=== PATIENT | male | born 1950 | race Asian ===

== ENCOUNTER 2024-01-31 17:23 | Inpatient (IN) | payer OTHER, SELFPAY ==
[2024-01-31] VITALS (8 sets, daily range): BP systolic 126–147; BP diastolic 51–66; BMI 26.5; BMI 27.0
--- NOTE | 2024-01-31 14:30 | W.PN.CD ---
Addendum entered and electronically signed by Carlos Eagle MD 01/31/24 16:55:
I saw and examined the patient.
The STATUE CARVER's note was reviewed and I agree with the note.
73-year-old male, non-Uzbek speaking, with history of aortic stenosis, diabetes, hypertension and hypercholesterolemia has had some intermittent chest discomfort with activity. Not really reproducible with walking. Some of his symptoms are worse
with bending over. Due to a combination of patient's symptoms, risk factors and new ECG changes patient was sent to the hospital by Dr. Covarrubias for evaluation and treatment.. Currently chest pain-free. First troponin normal markable.
-Admit for further evaluation and treatment
-Troponins
-Echo to reassess aortic stenosis
-Aspirin.
-Lipid profile
-Diabetes management as directed by primary team
-Plan for cardiac catheterization 02/01/2020
Original Note:
Today's Communication / Plan
-
Npo after midnight
Coronary angiography in am
Impression / Plan
-
THIS IS THE SUMMARY
SEE SCANNED REPORT FOR FULL CONSULTATION
BACKGROUND: 73M who presented to outpatient cardiology office to establish care endorsed chest pain and was found to have new ST changes. He was referred to the ER for full evaluation.
Capacitor Inspector: Dr. Covarrubias (formerly known to Dr. Arias)
Chest pain
-New inferolateral ST depression
-ASA 324mg x 1 now then 81mg daily
-Troponin < 0.012, trend
-Currently chest pain free (no resting chest pain)
-Echocardiogram
-Cardiac catheterization in am, NPO after midnight
Hyperkalemia, hold valsartan
Aortic stenosis
-Mild in 2019 with peak/mean gradients 28/14mmHg, ABBY 1.5cm2 with mild AR
-Update TTE
HTN
-Continue medical therapy
-Mild cLVH on 2019 TTE
Type II DM, Hgba1c in am
HLD, on rosuvastatin 40mg, fasting lipid panel in am
COPD, no acute exacerbation
Former smoker, continued cessation recommended
SUBJECTIVE:
Chest pain free.
Physical Exam
Physical Exam
Constitutional: No acute distress and Comfortable
EENT: Anicteric and Moist mucous membranes
Cardiovascular: Rhythm & rate is regular, Pedal edema is absent and S1S2 is normal
Respiratory: Respiratory effort normal and Lungs clear to auscul.
GI: Soft, Distention absent, Flat and Non tender
Neuro/Psych: AO x 3
Other: Skin (warm and dry)
Data Reviewed
-
Date of Service: January 31, 2024
EKG: Report Reviewed by me
Labs: Labs Reviewed by me
Old Records: Reviewed
[2024-01-31 14:54] LABS: % Basophils 0.8 % (0-2); % Immature Granulocytes 0.3 % (0-0.5); % Lymphocytes 41.3 % (20.5-51.1); % Monocytes 9.1 % (1.7-9.3); % Neutrophils 44.5 % (42.2-75.2); Absolute Basophils 0.1 10^3/uL (0-0.2); Absolute Eosinophils 0.5 10^3/uL (0-0.7); Absolute Lymphocytes 5.1 10^3/uL (1.2-3.4); Absolute Monocytes 1.1 10^3/uL (0.1-0.6); Absolute Neutrophils 5.5 10^3/uL (1.4-6.5); Hematocrit 39.7 % (39.0-52.0); Hemoglobin 12.7 g/dL (13.0-18.0); Mean Corpuscular Hgb 22.5 pg (27.0-31.0); Mean Corpuscular Volume 70.4 fL (80.0-94.0); Mean Platelet Volume 10.4 fL (7.4-10.4); Nucleated Red Blood Cells % 0 % (-); Platelet Count 235 10^3/uL (130-400); Red Blood Cell Count 5.64 10^6/uL (4.70-6.10); Red Cell Dist. Width 15.9 % (11.5-14.5); White Blood Cell Count 12.3 10^3/uL (4.8-10.8)
[2024-01-31 15:15] LABS: ALT (SGPT) 42 U/L (0-50); AST (SGOT) 54 U/L (17-59); Albumin 4.5 g/dl (3.5-5.0); Alkaline Phosphatase 83 U/L (38-126); Blood Urea Nitrogen 11 mg/dl (9-20); Calcium 9.2 mg/dl (8.4-10.2); Carbon Dioxide 24 mmol/L (22-30); Chloride 108 mmol/L (98-107); Glucose 130 mg/dl (70-99); Potassium 5.6 mmol/L (3.5-5.1); Sodium 138 mmol/L (135-145); Total Bilirubin 0.6 mg/dl (0.2-1.3); Total Protein 8.9 g/dl (6.3-8.2); eGFR > 60.00
[2024-01-31 15:27] LABS: Troponin I < 0.012 ng/ml
--- NOTE | 2024-01-31 16:00 | ED.GENMED ---
History of Present Illness
<Brittney Hercules PA-C - Last Filed: 01/31/24 20:02>
General
Chief Complaint: Chest Pain
Source: patient
Exam Limitations: none
Time Seen by Provider: 01/31/24 15:23
Nursing documentation reviewed up to this point in time: agreed with
Travel History
Have you had any contact with someone who has COVID-19?: No
Do you have any symptoms of coronavirus? Fever > 100 degrees, chills, cough, shortness of breath, sore throat, loss of taste or smell, muscle aches, or headache?: No
History of Present Illness
History of Present Illness:
Patient is a 73-year-old male with history diabetes, hypertension, COPD, aortic stenosis presenting to the emergency department from cardiology office for admission. Patient seen in cardiology office today for evaluation of intermittent chest pain
and was found to have new EKG changes. Patient speaks little Armenian but his son-in-law is at bedside and translating. Reports intermittent shortness of breath when bending over. Patient denies any recent fever, chills. No history of blood clots.
Primer Supervisor noted ST changes in inferior lateral leads and T wave inversions. Sent by emergency department for admission and plan for cardiac cath in the morning, heparin drip, echo.
Phy Exam
<Brittney Hercules PA-C - Last Filed: 01/31/24 20:02>
Physical Exam
Physical Exam:
General: Well appearing and non-toxic
Vitals: Vital signs stable, afebrile
HEENT: Atraumatic, normocephalic; pupils equal round and reactive to light bilaterally, protecting airway
Neck: appears supple, no JVD
CV: Regular rate
Resp: No evidence of respiratory distress, scattered rhonchi
Abd: Soft, nontender, non-distended
Extremities: No deformities, no evidence of cyanosis or edema; DP pulses palpable and equal bilaterally
Neuro: alert and oriented x3; grossly intact
Psych: Normal affect
Skin: Intact, no rashes
Scores
<Brittney Hercules PA-C - Last Filed: 01/31/24 20:02>
Heart Score for Chest Pain Patients
STEMI patient?: No
History: Moderately Suspicious
ECG: Nonspecific Repolarization
Age: >/= 65 years
Risk Factors: >/= 3 Risk Factors or History of CAD
Troponin: </= Normal Limit
Heart Score for Chest Pain Patients: 6
Heart Score Risk: 20.3% MACE over next 6 weeks
Course
<Brittney Hercules PA-C - Last Filed: 01/31/24 20:02>
Orders/Labs/Results
Orders:
Orders
01/31/24 14:34
EKG [Electrocardiogram (*1)] Urgent
Reason for Study: Chest Pain
EKG- Treatment ONCE
01/31/24 14:48
Complete Blood Count/With Diff Urgent
Comprehensive Metabolic Panel Urgent
NT-proBNP Urgent
Comment: ADD ON
Troponin I Urgent
01/31/24 15:45
Aspirin Chewable [Low Strength Aspirin] 324 mg PO NOW STA
01/31/24 15:54
CARDIOLOGY CONSULT Urgent
Consulting Provider: Carlos Eagle
Was physician already notified: Yes
01/31/24 16:09
Heparin 4,000 units IV NOW STA
Nursing to Place Non Medication Order As Directed
Physician Order: PTT 6 hours after initial start of Heparin infusion
Above order entered?: Yes
01/31/24 16:15
Heparin 88580 Units/250 ml 25,000 units in 250 ml IV PER PROTOCOL
Weight to be used for heparin protocol in kilograms (kg):: 76.8
Protocol:: Cardiac Tx/Acute Coronary
PTT Goal Range to be used:: PTT 73 to 111 seconds
Order type:: Initial
INITIAL Infusion Dose (UNITS/KG/hr) & then follow protocol:: 12 units/kg/hr
Infusion Dose in UNITS/hr & then follow protocol (UNITS/hr):: 900
INFUSION RATE in mL/hr & then follow protocol (mL/hr):: 9
PTT less than or equal to 64 seconds:: Increase rate by 200 units/hr (+ 2 mL/hr)
PTT 64.1 to 72.9 seconds:: Increase rate by 100 units/hr (+ 1 mL/hr)
PTT 73 to 111 seconds:: Target Range. No change in rate.
PTT 111.1 to 130.9 seconds:: Decrease rate by 100 units/hr (- 1 mL/hr)
PTT 131 to 199.9 seconds:: HOLD for 1 hr. Then decrease rate by 200 units/hr (- 2 mL/hr)
PTT greater than or equal to 200 seconds:: HOLD for 2 hrs & Notify Provider. Then decrease by 200 units/hr (-
2 mL/hr)
Lab follow-up:: Each change, PTT q6h until 2 consecutive are therapeutic. Then PTT
daily.
01/31/24 16:24
CR Chest - 2 Views Urgent
Comment:
Reason For Exam: cough
01/31/24 16:30
COVID-19 Antigen Urgent
Source: Nasal Swab
PTT Urgent
Comment: Obtain baseline before beginning heparin infusion if not already collected
01/31/24 16:36
Add On- LAB Urgent
Tests Added?: BNP
01/31/24 16:43
Admit/Transfer Patient As Directed
Co-Sign Provider:
Level of Care: Inpatient admission
Assign to:: IVU
Physician / Group: yudelka child
Diagnosis: JOYNER concern [place]
Reason for Hospitalization: JOYNER concern [place]
Expected length of stay greater than two midnights?: Yes
ELOS- Estimated Length of Stay in days: 4
I certify the patient meets the requirements for IP care: Yes
Code Status As Directed
Resuscitation Status: Full Code
01/31/24 16:53
Sodium Zirconium Cyclosilicate [Lokelma] 10 gram PO NOW STA
01/31/24 20:00
EKG [Electrocardiogram (*1)] Routine
Reason for Study: Chest Pain
Comment: To be done with troponin
Troponin I Routine
02/01/24 Breakfast
NPO
Allow oral meds: Yes
Allow clear liquids: No
NPO with Ice Chips: No
NPO for procedure after (time): Midnight for cardiac cath
Glycohemoglobin (HgbA1c) IN AM
Lipid Profile [Cardiovascular Evaluation] IN AM
02/01/24 08:00
Echo 2D MMode Color/Doppler Routine
Reason for Study: Chest pain, aortic stenosis
Aspirin Low Dose EC [Aspir Low (Enteric Coated)] 81 mg PO DAILY
Abnormal Lab Results
01/31/24 01/31/24
14:48 16:30
WBC 12.3 H 10^3/uL
(4.8-10.8)
Hgb 12.7 L g/dL
(13.0-18.0)
MCV 70.4 L fL
(80.0-94.0)
MCH 22.5 L pg
(27.0-31.0)
MCHC 32.0 L g/dL
(33.0-37.0)
RDW 15.9 H %
(11.5-14.5)
Absolute Lymphs (auto) 5.1 H 10^3/uL
(1.2-3.4)
Absolute Monos (auto) 1.1 H 10^3/uL
(0.1-0.6)
APTT 36.1 H Sec
(23.4-35.0)
Potassium 5.6 H mmol/L
(3.5-5.1)
Chloride 108 H mmol/L
(98-107)
Glucose 130 H mg/dl
(70-99)
Total Protein 8.9 H g/dl
(6.3-8.2)
01/31/24 14:48
01/31/24 14:48
Vital Signs
Initial and Last Documented VS:
Initial Vital Signs
Temp Pulse Resp BP Pulse Ox
98.0 F 68 15 128/57 96
01/31/24 14:35 01/31/24 14:35 01/31/24 14:35 01/31/24 14:35 01/31/24 14:35
Last Documented Vital Signs
Temp Pulse Resp BP Pulse Ox
98.0 F 72 16 142/57 96
01/31/24 14:35 01/31/24 18:00 01/31/24 16:45 01/31/24 19:00 01/31/24 19:30
<Ashkan Tang MD - Last Filed: 01/31/24 16:18>
Orders/Labs/Results
Orders:
Orders
01/31/24 14:34
EKG [Electrocardiogram (*1)] Urgent
Reason for Study: Chest Pain
EKG- Treatment ONCE
01/31/24 14:48
Complete Blood Count/With Diff Urgent
Comprehensive Metabolic Panel Urgent
NT-proBNP Urgent
Comment: ADD ON
Troponin I Urgent
01/31/24 15:45
Aspirin Chewable [Low Strength Aspirin] 324 mg PO NOW STA
01/31/24 15:54
CARDIOLOGY CONSULT Urgent
Consulting Provider: Carlos Eagle
Was physician already notified: Yes
01/31/24 16:09
Heparin 4,000 units IV NOW STA
Nursing to Place Non Medication Order As Directed
Physician Order: PTT 6 hours after initial start of Heparin infusion
Above order entered?: Yes
01/31/24 16:15
Heparin 13956 Units/250 ml 25,000 units in 250 ml IV PER PROTOCOL
Weight to be used for heparin protocol in kilograms (kg):: 76.8
Protocol:: Cardiac Tx/Acute Coronary
PTT Goal Range to be used:: PTT 73 to 111 seconds
Order type:: Initial
INITIAL Infusion Dose (UNITS/KG/hr) & then follow protocol:: 12 units/kg/hr
Infusion Dose in UNITS/hr & then follow protocol (UNITS/hr):: 900
INFUSION RATE in mL/hr & then follow protocol (mL/hr):: 9
PTT less than or equal to 64 seconds:: Increase rate by 200 units/hr (+ 2 mL/hr)
PTT 64.1 to 72.9 seconds:: Increase rate by 100 units/hr (+ 1 mL/hr)
PTT 73 to 111 seconds:: Target Range. No change in rate.
PTT 111.1 to 130.9 seconds:: Decrease rate by 100 units/hr (- 1 mL/hr)
PTT 131 to 199.9 seconds:: HOLD for 1 hr. Then decrease rate by 200 units/hr (- 2 mL/hr)
PTT greater than or equal to 200 seconds:: HOLD for 2 hrs & Notify Provider. Then decrease by 200 units/hr (-
2 mL/hr)
Lab follow-up:: Each change, PTT q6h until 2 consecutive are therapeutic. Then PTT
daily.
01/31/24 16:24
CR Chest - 2 Views Urgent
Comment:
Reason For Exam: cough
01/31/24 16:30
COVID-19 Antigen Urgent
Source: Nasal Swab
PTT Urgent
Comment: Obtain baseline before beginning heparin infusion if not already collected
01/31/24 16:36
Add On- LAB Urgent
Tests Added?: BNP
01/31/24 16:43
Admit/Transfer Patient As Directed
Co-Sign Provider:
Level of Care: Inpatient admission
Assign to:: IVU
Physician / Group: yudelka child
Diagnosis: JOYNER concern [place]
Reason for Hospitalization: JOYNER concern [place]
Expected length of stay greater than two midnights?: Yes
ELOS- Estimated Length of Stay in days: 4
I certify the patient meets the requirements for IP care: Yes
Code Status As Directed
Resuscitation Status: Full Code
01/31/24 16:53
Sodium Zirconium Cyclosilicate [Lokelma] 10 gram PO NOW STA
01/31/24 20:00
EKG [Electrocardiogram (*1)] Routine
Reason for Study: Chest Pain
Comment: To be done with troponin
Troponin I Routine
02/01/24 Breakfast
NPO
Allow oral meds: Yes
Allow clear liquids: No
NPO with Ice Chips: No
NPO for procedure after (time): Midnight for cardiac cath
Glycohemoglobin (HgbA1c) IN AM
Lipid Profile [Cardiovascular Evaluation] IN AM
02/01/24 08:00
Echo 2D MMode Color/Doppler Routine
Reason for Study: Chest pain, aortic stenosis
Aspirin Low Dose EC [Aspir Low (Enteric Coated)] 81 mg PO DAILY
Abnormal Lab Results
01/31/24 01/31/24
14:48 16:30
WBC 12.3 H 10^3/uL
(4.8-10.8)
Hgb 12.7 L g/dL
(13.0-18.0)
MCV 70.4 L fL
(80.0-94.0)
MCH 22.5 L pg
(27.0-31.0)
MCHC 32.0 L g/dL
(33.0-37.0)
RDW 15.9 H %
(11.5-14.5)
Absolute Lymphs (auto) 5.1 H 10^3/uL
(1.2-3.4)
Absolute Monos (auto) 1.1 H 10^3/uL
(0.1-0.6)
APTT 36.1 H Sec
(23.4-35.0)
Potassium 5.6 H mmol/L
(3.5-5.1)
Chloride 108 H mmol/L
(98-107)
Glucose 130 H mg/dl
(70-99)
Total Protein 8.9 H g/dl
(6.3-8.2)
01/31/24 14:48
01/31/24 14:48
Vital Signs
Initial and Last Documented VS:
Initial Vital Signs
Temp Pulse Resp BP Pulse Ox
98.0 F 68 15 128/57 96
01/31/24 14:35 01/31/24 14:35 01/31/24 14:35 01/31/24 14:35 01/31/24 14:35
Last Documented Vital Signs
Temp Pulse Resp BP Pulse Ox
98.0 F 72 16 142/57 96
01/31/24 14:35 01/31/24 18:00 01/31/24 16:45 01/31/24 19:00 01/31/24 19:30
<Brittney Hercules PA-C - Last Filed: 01/31/24 20:02>
MDM/Problems Addressed
Differential Diagnosis Includes:
Unstable angina, NSTEMI, stable angina, GERD, pericarditis,
MDM/Problems Addressed:
Patient is a 73-year-old male with history hypertension, diabetes, COPD presenting from cardiology office for intermittent chest pain and EKG changes. Sent in by cardiology for admission and plan for cardiac cath in the morning. We will start
heparin drip, aspirin, NPO as directed by cardiology. Plan for echo on this admission, as well. Cardiology is at bedside upon arrival. Discussed with hospitalist.
Chronic conditions affecting care:
Hypertension, diabetes, c/o
Acute Exacerbation and/or Progression of Chronic Illness:
N/A
<Brittney Hercules PA-C - Last Filed: 01/31/24 20:02>
*Pulse Oximetry
Patient hypoxic: no
*EKG
Interpreted by ED Provider?: Yes
EKG Intrepretation Date: 01/31/24
Interpretation: normal
Comparison EKG: no comparison EKG present
Heart Rate: 68
Rate: normal
Rhythm: sinus
Ischemia: non-specific ST changes
*Critical Care Note
Total Time (30-74mins, 75-104mins- exclusive of procedures): Not Applicable
Data Reviewed
Review of Other/Old Records Reveals: Testing (Prior EKG)
<Brittney Hercules PA-C - Last Filed: 01/31/24 20:02>
Patient Management
Discussion with other providers: Hospitalist and Roofing Superintendent (Cardiology)
ED Attending Note
<Brittney Hercules PA-C - Last Filed: 01/31/24 20:02>
-
Portions of this chart may have been created with voice recognition software.� Occasional wrong word or��sound alike� substitutions may have occurred due to the inherent limitations of voice recognition software.
<Ashkan Tang MD - Last Filed: 01/31/24 16:18>
ED Attending Note
Patient seen and examined by attending physician: Yes
ED Attending Note:
HPI: 73-year-old male with a past medical history of aortic stenosis, hyperlipidemia, hypertension, COPD, diabetes who presents to the emergency room sent in by cardiology for evaluation of chest discomfort and abnormal EKG. Patient does not speak
Armenian his son-in-law is at bedside and provides translation. Patient has been experiencing midsternal chest discomfort which he has been attributing to indigestion. Sound like it is exertional. Occasional dyspnea as well�he states that this
seems to be worse when he bends over. He was seen by cardiology in the office had an EKG which showed inferior lateral ST depression and T wave inversions he was sent to the emergency room with plan for admission and cardiac cath in the morning.
ROS: Positive for chest pain, shortness of breath; negative for abdominal pain, nausea, vomiting, diaphoresis
Physical exam:
General: Awake, alert; no acute distress
Head: Normocephalic, atraumatic
Eyes: Conjunctiva normal
Throat: Airway intact, handling secretions
Neck: Trachea midline, supple without meningismus
Lungs: Breathing comfortably no distress
Heart: Regular rate
Neuro: No gross deficits
Skin: no rash
Extremities: No edema in extremities
Differential diagnosis: Unstable angina
Medical decision makin-year-old male presents with intermittent chest pains and abnormal EKG found on outpatient cardiology visit. He was referred to the emergency room with plan for initiation of heparin infusion, treat with aspirin and
admission for cardiac catheterization in the morning. N.p.o. at midnight. Will also perform echocardiogram admitted. Cardiology at bedside on ED arrival. Discussed with hospitalist for admission.
Chronic conditions affecting care: Hypertension, hyperlipidemia, diabetes�higher risk for heart disease
Acute exacerbation or progression of chronic illness: N/A
History source: Patient, son-in-law, curtain cutter
Data reviewed: Outpatient cardiology note reviewed
Medications/testing considered: N/A
Social determinants of health: N/A
Discussion with other providers: Discussed with cardiology, discussed with hospitalist
Discharge Plan
Departure
Patient Disposition: Admit
Date of Disposition: 01/31/24
Time of Disposition: 16:01
Admit to doctor: Do
Presentation/result/management discussed w/ accepting MD/DO: Hospitalist
Discharge Problem:
Chest pain, Abnormal EKG, Unstable angina
Interventions
Interventions:
*Risk Screen - Suicide Last Done: 01/31/24 14:35
*General Assessment Last Done: 01/31/24 14:35
*Neglect/Abuse Screening Last Done: 01/31/24 14:35
ED- Fall Risk Assessment Last Done: 01/31/24 16:49
*ED COVID-19 Vaccine History Last Done: 01/31/24 14:35
ED- Cardiac Assessment Last Done: 01/31/24 16:49
--- NOTE | 2024-01-31 16:13 | HPS.HSE ---
Addendum entered and electronically signed by Goyo Lerma MD 01/31/24 16:54:
I saw and examined the patient.
The MORTGAGE LOAN COMPUTATION CLERK's note was reviewed and I agree with the note.
Comment:
80-year-old male presenting to primary care doctor's office with complaints of chest pain and abnormal EKG. Patient was seen in the ER by cardiology. Patient with history of severe smoking and tobacco abuse. Patient also with increasing risk
factors of hypertension, hyperlipidemia and diabetes and obesity. Currently patient without any chest pain. Resting in bed comfortably. No further complaints.
General no acute distress
Cardiac S1-S2 regular rate rhythm
Lungs bilateral coarse sounds
Abdomen positive bowel sounds distended obesity
Extremities no edema
Impression
Unstable angina
Primary hypertension
hyperlipidemia
COPD
Tobacco abuse
Obesity
Leukocytosis
hyperkalemia
Plan
Cardiology evaluated the patient
Plan for cardiac catheterization in the morning
N.p.o. past midnight
Heparin drip
TTE pending
Status post aspirin
Check chest x-ray COVID and proBNP
update a1c
hold po DM meds.
DVT Prophylaxis heparin drip
Original Note:
Family Physician
-
Family Physician:
Chief Complaint
-
Abnormal EKG, chest pain on exertion
History of Present Illness
73-year-old male from primary care office office for abnormal EKG. He reports for the past few weeks well getting up or bending over to change he develops midsternal chest pain radiates to left and right-sided chest and resolves after a few minutes.
He also reports a nonproductive cough for the past 2 days. He denies fever, chills, current chest pain at rest, shortness of breath, abdominal pain, nausea, vomiting, diarrhea, urinary symptoms
The patient has a past medical history of HTN, HLD, COPD/former smoker 10-year 1/2 pack/day quit age 51, DM2, obesity
Medical History
Past Medical History
Past Medical History: Reports Other
Additional Past Medical History:
HTN, HLD, COPD/former smoker 10-year 1/2 pack/day quit age 51, DM2, obesity
Past Surgical History: Reports None
Social History
Tobacco: Former Smoker (Quit age 51 smoked 10 years 1/2 pack/day)
Alcohol: None
Drug: None
Personal:
Living: With Family
Employment: Retired
Family History
Family History: Other (Father CVA age 95, mother age CVA 85)
Allergies / Home Medications
Allergies reflects when Allergies were last updated in [facility].
Home Medications with original date entered in [facility]
Allergy/Medication List:
Allergies
Allergy/AdvReac Type Severity Reaction Status Date / Time
No Known Allergies Allergy Verified 01/31/24 15:49
Home Medications
amlodipine 5 mg tablet 5 mg PO DAILY 01/31/24
dapagliflozin propanediol 10 mg tablet (Farxiga) 10 mg PO DAILY 01/31/24
fluticasone fur. 100 mcg-umeclid 62.5 mcg-vilant 25 mcg inhalat.powder (Trelegy Ellipta) 1 inh inhalation R DAILY 01/31/24
insulin aspart U-100 100 unit/mL (3 mL) subcutaneous pen 10 unit SC MEALS 01/31/24
insulin detemir U-100 100 unit/mL (3 mL) subcutaneous pen (Levemir FlexPen) 0 unit SC .UNKNOWN 01/31/24
omeprazole 40 mg capsule,delayed release 40 mg PO DAILY 01/31/24
rosuvastatin 40 mg tablet 40 mg PO HS 01/31/24
sitagliptin phosphate 50 mg-metformin 1,000 mg tablet (Janumet) 1 tab PO BID@0800,1700 01/31/24
valsartan 320 mg tablet 320 mg PO DAILY 01/31/24
Review of Systems
-
History Source: Patient and Family (Son-in-law at bedside translating)
A 12 point ROS was completed and negative except as noted: Yes
Constitutional: Denies Fever, Weight Gain or Weight Loss
EENT: Denies Sore Throat or Runny Nose
Respiratory: Reports Cough (Nonproductive); Denies Trouble Breathing
Cardiac: Reports Chest Pain (With activity); Denies Diaphoresis, Palpitations or Syncope
Abdomen/GI: Denies Abdominal Pain, Nausea, Vomiting or Diarrhea
: Denies Dysuria, Frequency, Flank Pain, Incontinence, Difficulty Voiding or Urgency
Musculoskeletal: Denies Joint Pain or Edema
Skin: Denies Itching or Rash
Neurological: Denies Dizzy or Headache
Endocrine: Reports No Symptoms
Hematologic/Lymphatic: Reports No Symptoms
Psych: Reports Calm
Physical Exam
Vital Signs
Vital Signs
Temp Pulse Resp BP Pulse Ox
98.0 F 68 15 128/57 96
01/31/24 14:35 01/31/24 14:35 01/31/24 14:35 01/31/24 14:35 01/31/24 14:35
Physical Exam
General: Comfortable, Conversant and Obese; No Fever or Chills
HEENT: NormoCephalic, Anicteric, PERRLA, Secretary Conjunctivae and No Ptosis
Respiratory: Rhonchi
Cardiac: S1/S2; No Murmur, Rub, Gallop or Peripheral Edema
Breast: Deferred by me
GI: Soft, Non Tender, Non Distended, Normal Bowel Sounds and No Hepatosplenomegaly
Rectal: Deferred by Provider
Genito-urinary: Deferred by me
Musculoskeletal: No Clubbing, No Cyanosis and No Edema
Skin: Warm and Dry; No Rash
Neuro: AO x 3 (Per son-in-law translating), Cranial Nerves Intact and No Sensory Deficits; No Slurred Speech, Facial Droop or Tremors
Psych: Calm
Laboratory Results
-
01/31/24 14:48
01/31/24 14:48
Laboratory Results
Total Bilirubin 0.6 mg/dl (0.2-1.3) 01/31/24 14:48
AST 54 U/L (17-59) 01/31/24 14:48
ALT 42 U/L (0-50) 01/31/24 14:48
Alkaline Phosphatase 83 U/L (38-126) 01/31/24 14:48
Troponin I < 0.012 ng/ml 01/31/24 14:48
Data Reviewed
-
Lab Data: Labs Reviewed by me
Impression/Plan
-
Impression/plan:
Admit to IVU
Dyspnea on exertion concern for [place]
-Consult cardiology
-Start aspirin 81 mg daily
-IV heparin drip
-N.p.o. after midnight
- For CATH/ECHO in AM
-Check CXR, COVID swab, BNP
#DM2
Accu-Cheks with SSI, check HgbA1c
#HTN�benign
Continue amlodipine 5 mg daily, valsartan 320 mg daily
#COPD�no acute exacerbation
-Continue Trelegy Ellipta
#GERD
-Continue omeprazole 40 mg daily
DVT prophylaxis
IV heparin drip
Full code
[2024-01-31] MEDS: LOW STRENGTH ASPIRIN 324 MG PO (16:16)
[2024-01-31 16:58] LABS: APTT 36.1 Sec (23.4-35.0)
[2024-01-31 17:04] LABS: COVID-19 Antigen Negative (Negative)
[2024-01-31 17:07] LABS: NT-proBNP 104 pg/ml
[2024-01-31] MEDS: LOKELMA 10 GRAM PO (17:09)
[2024-01-31] MEDS: HEPARIN 4000 UNITS IV (17:12)
[2024-01-31] MEDS: HEPARIN 25000 UNITS/250 ML IV (17:17)
[2024-01-31 20:39] LABS: Troponin I < 0.012 ng/ml
[2024-01-31 22:03] LABS: Glucose - Point of Care 133 mg/dl (70-99)
--- NOTE | 2024-01-31 22:11 | PTCARENOTE ---
Patient received from ED. Walked into room. Heparin infusing at 900 units/hr, family at bedside to interpret, plan of care reviewed and patient denies chest pain
[2024-01-31] MEDS: CRESTOR 40 MG PO (23:02)
[2024-01-31 23:24] LABS: APTT 59.9 Sec (23.4-35.0)
--- NOTE | 2024-01-31 23:26 | PTCARENOTE ---
Assisted to the bathroom, dyspneic with little exertion. 92% on room air, fine rales b/l bases. PTT collected , call garces in reach
[2024-02-01] VITALS (12 sets, daily range): BP systolic 110–169; BP diastolic 46–89; BMI 27.0
[2024-02-01 05:46] LABS: % Basophils 0.8 % (0-2); % Eosinophils 4.4 % (0-6); % Immature Granulocytes 0.2 % (0-0.5); % Lymphocytes 40.8 % (20.5-51.1); % Monocytes 8.5 % (1.7-9.3); % Neutrophils 45.3 % (42.2-75.2); Absolute Basophils 0.1 10^3/uL (0-0.2); Absolute Eosinophils 0.6 10^3/uL (0-0.7); Absolute Lymphocytes 5.1 10^3/uL (1.2-3.4); Absolute Monocytes 1.1 10^3/uL (0.1-0.6); Absolute Neutrophils 5.7 10^3/uL (1.4-6.5); Hematocrit 38.6 % (39.0-52.0); Hemoglobin 12.3 g/dL (13.0-18.0); Mean Corp Hgb Conc. 31.9 g/dL (33.0-37.0); Mean Corpuscular Volume 69.1 fL (80.0-94.0); Mean Platelet Volume 10.9 fL (7.4-10.4); Nucleated Red Blood Cells % 0 % (-); Platelet Count 217 10^3/uL (130-400); Red Blood Cell Count 5.59 10^6/uL (4.70-6.10); Red Cell Dist. Width 15.4 % (11.5-14.5); White Blood Cell Count 12.5 10^3/uL (4.8-10.8)
[2024-02-01 06:01] LABS: APTT 52.6 Sec (23.4-35.0)
[2024-02-01 06:50] LABS: Blood Urea Nitrogen 13 mg/dl (9-20); Carbon Dioxide 21 mmol/L (22-30); Chloride 108 mmol/L (98-107); Estimated Creatinine Clearance 102 ml/min; Glucose 130 mg/dl (70-99); HDL Cholesterol 26 mg/dl; LDL Cholesterol, Calculated 31 mg/dl; Potassium 4.1 mmol/L (3.5-5.1); Sodium 137 mmol/L (135-145); Total Cholesterol 93 mg/dl (50-199); Triglyceride 180 mg/dl (10-149); Very Low Density Lipoprotein 36 mg/dl (0-30); eGFR > 60.00
[2024-02-01] MEDS: SPIRIVA RESPIMAT 2.5 MCG 2 PUFF INH (07:11)
[2024-02-01] MEDS: SYMBICORT 80/4.5 MCG INHALER 2 PUFF INH ×2 (07:11→19:54)
[2024-02-01 07:34] LABS: Glucose - Point of Care 138 mg/dl (70-99)
[2024-02-01] MEDS: DIOVAN 320 MG PO (07:51)
[2024-02-01] MEDS: ASPIR LOW (ENTERIC COATED) 81 MG PO (07:52)
[2024-02-01] MEDS: PROTONIX 40 MG PO (07:52)
[2024-02-01] MEDS: FARXIGA 10 MG PO (07:52)
[2024-02-01] MEDS: NORVASC 5 MG PO (07:53)
--- NOTE | 2024-02-01 08:46 | W.PN.CD ---
Today's Communication / Plan
-
Multiple unanswered questions.
TTE to assess myocardial function/.
Coronary angiography today. We may change to right + left heart catheterization to assess pulmonary pressure, CO/CI given CXR findings.
Impression / Plan
-
Impression/Plan: 73 y/o [place] gentleman who presented to outpatient cardiology office to establish care endorsed chest pain and was found to have new ST changes. He was referred to the ER for full evaluation/cardiac catheterization.
#Chest pain
-Intermittent by report. Currently chest pain free.
-Office EKG shows new inferolateral ST depression.
-Plan for coronary angiography to clarify coronary anatomy today.
-Echocardiogram pending. We will interpret this before going to cath (especially in light of CXR findings and prior diagnosis of ).
#Aortic stenosis
-Mild in 2019 with peak/mean gradients 28/14mmHg, ABBY 1.5cm2 with mild AR.
-TTE this morning.
-We may interrogate the aortic valve at catheterization.
#HTN
-Chronic, stable.
-Continue amlodipine, valsartan.
-Mild cLVH on 2019 TTE.
#Type II DM
-Chronic, stable.
-Hgba1c pending.
#HLD
-Chronic, stable.
-Total cholesterol = 93, LDL = 31, HDL = 26, Triglycerides = 180.
-Continue rosuvastatin 40mg.
#COPD/IPF
-Chronic, stable.
-No acute exacerbation.
-CXR suggests inflammatory/fibrotic pattern (pulmonary edema less likely).
#Former smoker
-Continued cessation recommended.
Puppet Master: Dr. Covarrubias (formerly known to Dr. Arias)
Subjective/Interval History:
Nursing notes dyspnea on minimal exertion (walking to bathroom).
SaO2 91-92% on RA.
DATA:
CXR, 01/31/2024:
IMPRESSION:
There is moderately extensive diffuse bilateral pulmonary interstitial inflammatory disease.
In the absence of prior studies for comparison, it is difficult to assess whether these inflammatory changes are acute or chronic. Specifically, this may be diffuse interstitial fibrosis, interstitial pneumonia or a combination of the two.
The possibility that this is pulmonary edema is less likely but not excluded.
Correlation with the patient's white count and BNP is recommended.
Physical Exam
Vital Signs/Labs
Vital Signs
Temp Pulse Resp BP Pulse Ox
36.6 C 73 18 143/60 91
02/01/24 07:31 02/01/24 07:53 02/01/24 07:31 02/01/24 07:53 02/01/24 07:31
01/30/24 01/31/24 02/01/24
11:59 11:59 11:59
Actual Weight 75.863 kg
02/01/24 05:29
02/01/24 06:11
APTT 52.6 Sec (23.4-35.0) H 02/01/24 05:29
Triglycerides 180 mg/dl (10-149) H 02/01/24 06:11
LDL Cholesterol, Calc 31 mg/dl 02/01/24 06:11
VLDL Cholesterol, Calc 36 mg/dl (0-30) H 02/01/24 06:11
HDL Cholesterol 26 mg/dl 02/01/24 06:11
01/31/24
14:48
Jfb-J-[id number] Pept 104
LAB Results
01/31/24 01/31/24
14:48 20:07
Troponin I < 0.012 < 0.012
Physical Exam
Constitutional: No acute distress and Comfortable
EENT: Anicteric and Moist mucous membranes
Cardiovascular: Rhythm & rate is regular, Pedal edema is absent, JVD pressure is normal, S1S2 is normal and Murmur/rub/gallop absent
Respiratory: Respiratory effort normal and Rhonchi Present
GI: Soft, Distention absent, Flat, Non tender and Normal bowel sounds
Neuro/Psych: AO x 3
Data Reviewed
-
Date of Service: February 01, 2024
Medical Decision Making: Reviewed Test Results, Test Interpretation and Review of Case with other Provider
EKG: Tracing Personally Visualized and interpreted and Report Reviewed by me
X-Ray/CT/US/MRI/NUC/PET: Image Personally Visualized and interpreted and Report Reviewed by me
Medical Tests (PFT, Pathology etc): Image Personally Visualized and interpreted and Report Reviewed by me
Labs: Labs Reviewed by me
Old Records: Reviewed
[2024-02-01 09:00] LABS: Glycohemoglobin (HgbA1c) 8.6 % (4.0-5.6)
--- NOTE | 2024-02-01 09:04 | PTCARENOTE ---
Assumed care of pt from night RN. Pt received awake and alert, sitting up in bed. Pt only speaks Gerald, son in law at bedside to translate. VSS, CM shows NSR 70's, POX 92% on RA. He remains NPO for CC today. Pt offers no c/o pain or discomfort.
Heparin drip infusing through right wrist at 1300 u/hr. Next PTT due at 1230.
--- NOTE | 2024-02-01 10:19 | W.PN.HOSP.TC ---
Today's Communication/Plan
-
cath today
IV hep
asa
cards recs
Assessment / Plan
Assessment / Plan
Dyspnea on exertion concern for USA
-Consult cardiology
-Start aspirin 81 mg daily
-IV heparin drip
-N.p.o. for cath today
-BNP at 104
#Aortic stenosis
-ECHo normal left ventricular function. EF 55%. Normal regional wall motion. Stage I diastolic dysfunction. Calcified aortic valve with mild/moderate aortic stenosis. No other significant valve abnormalities noted. No evidence of pulmonary
hypertension.
#DM2
Accu-Cheks with SSI, check HgbA1c AT 8.6
#Leukocytosis
-COVID negative.
-Chest x-ray with more extensive diffuse bilateral pulmonary interstitial inflammatory disease. In the absence of respiratory complaints or difficulties with this and family changes and acute on chronic. Specifically this may be diffuse
interstitial fibrosis, dissection pneumonia combination of the two. Possibility that this is pulmonary edema is less likely but not excluded.
-remains afebrile.
#HTN�benign
Continue amlodipine 5 mg daily, valsartan 320 mg daily
#COPD�no acute exacerbation
-Continue Trelegy Ellipta
#GERD
-Continue omeprazole 40 mg daily
#Mild hyperkalemia
-resolved. s/p dose lokelma.
DVT prophylaxis
IV heparin drip
Full code
d/w with son in law at bedside
Anticipated Discharge: Within 24 hours
Subjective/Interval History
-
Date of Service: February 01, 2024
remains CP free
Objective Data
-
Labs:
Laboratory Results
01/31/24 02/01/24 02/01/24
23:05 05:29 06:11
WBC 12.5 H
Hgb 12.3 L
Hct 38.6 L
Plt Count 217
APTT 59.9 H 52.6 H
Sodium Cancelled 137
Potassium Cancelled 4.1 D
Chloride Cancelled 108 H
Carbon Dioxide Cancelled 21 L
BUN Cancelled 13
Creatinine Cancelled 0.6 L
Glucose Cancelled 130 H
Calcium Cancelled 9.0
02/01/24
12:22
WBC
Hgb
Hct
Plt Count
APTT Pending
Sodium
Potassium
Chloride
Carbon Dioxide
BUN
Creatinine
Glucose
Calcium
Vital Signs:
Vital Signs
Temp Pulse Resp BP Pulse Ox
98 F 73 18 143/60 92
02/01/24 07:31 02/01/24 07:53 02/01/24 07:31 02/01/24 07:53 02/01/24 08:56
Physical Exam
-
General: Well Developed and No Apparent Distress
HEENT: Normocephalic, Atraumatic and Moist Mucous Membranes
Respiratory: Clear to Auscultation
Cardiac: Regular Rhythm and S1/S2; Negative Murmur, Rub or Gallop
GI: Soft, Nontender, Nondistended and Normal Bowel Sounds; Negative Organomegaly
Rectal: Deferred by Provider
Musculoskeletal: No Clubbing, No Cyanosis and No Edema
Skin: Negative Rash
Neuro: Awake, No Motor Deficits and Nonfocal/Grossly Intact
Psych: Calm
--- NOTE | 2024-02-01 10:20 | PTCARENOTE ---
Pt to CCL, report given to CL RN.
[2024-02-01 12:35] LABS: ACT-LR - POC 369 Seconds (116-155)
--- NOTE | 2024-02-01 12:35 | ITS.CL.ANGIO ---
Slasher - Angioplasty
Angioplasty
Procedure Report:
CARDIAC CATHETERIZATION REPORT
Date of Procedure: 02/01/2024
Referring: Mike Covarrubias M.D.
Indication: High risk chest pain.
PROCEDURE:
1. Right heart catheterization.
2. Left heart catheterization.
3. Coronary angiography.
4. Aortic valve interrogation.
5. Successful IFR of the mid LAD.
6. Successful IVUS guided PCI of the mid LAD.
ACCESS:
6 Greek right radial artery.
5 Greek right antecubital vein - small tributary that does not lead into a main vessel.
6 Greek right common femoral vein using a modified Seldinger technique with a micropuncture kit under ultrasound guidance.
CATHETERS:
1. 5 Greek balloon wedge.
2. 5 Greek JL 3.5.
3. 5 Greek JR4.
4. 6 Greek XB 3.0 guiding catheter.
HEMODYNAMIC DATA
Weight (kg): 75.7
AO (s/d/x mmHg): 145/57/89
LV (s/x mmHg): 175/13
PCWP (a/v/x mmHg): 16/
PA (s/d/x mmHg): 39/19/26
RV (s/x mmHg): 39/10
RA (a/v/x mmHg): 12
SVC SvO2 (%): 70.3
PA SvO2 (%): 64.1
SaO2 (%): 91.6
Hbg (g/dL): 13.0
CO (L/min): 5.76
CI (L/min/m2): 3.11
TPG (mmHg): 13
PVR (Ogden Units): 2.26
SVR (dynes*seconds*cm^-5): 1097
AVO2 Diff (Volume %): 4.86
AV gradient (x, mmHg): 33.4
AV area (cm2): 1.02
LEFT VENTRICULOGRAPHY: Not performed.
CORONARY ANGIOGRAPHY
Dominance: Left.
Left Main: Extremely short, trifurcating vessel. There is no coronary artery disease.
LAD: Normal size vessel giving rise to 2 significant diagonals. There is a 30-40% lesion in the ostial/proximal vessel. There is a 70% lesion in the mid vessel, immediately after the first diagonal.
Ramus: Small, vestigial vessel. There is no coronary disease.
Circumflex: Large size, dominant vessel giving rise to 2 obtuse marginals, a left posterolateral branch and an L PDA. There are minor luminal irregularities throughout.
RCA: Small size, nondominant vessel. There are minor luminal irregularities.
INTERVENTIONS
1. Successful IFR of the 70% mid LAD lesion, demonstrating occlusive disease (IFR = 0.79).
2. Successful IVUS guided PCI of the occlusive 70% mid LAD lesion (Xience Skypoint 3.0 x 18 ADILENE, postdilated with a 3.25 x 12 noncompliant balloon) with reduction in stenosis to 0%, maintaining SHAMIR-3 flow.
Narrative:
The decision was made to perform physiologic testing. The diagnostic catheter was removed over a wire and exchanged for a(n) 6 Greek XB 3.0 guiding catheter. The guiding catheter was advanced into the ascending aorta and seated in the left main
coronary artery, more selectively in the LAD. Additional heparin was given to obtain an ACT greater than 250 seconds. An iFR wire was zeroed outside of the body, then inserted into the guiding sheath. The wire was advanced and the transducer was
normalized just outside of the guiding catheter tip. The wire was advanced into the mid LAD, beyond the 70% mid LAD lesion. Three iFR measurements were taken. The lesion was determined to be occlusive (0.79).
The decision was made to proceed with percutaneous coronary intervention. Additional heparin was given and a Power Turn Flex wire was advanced into the distal LAD. The IFR wire was disconnected from the transducer and pulled back into the proximal
LAD, then readvanced into the first diagonal to serve as a marker. The 70% mid LAD lesion was predilated with a 2.0 x 12 semi-compliant balloon to 12 chyna. The semi-compliant balloon was removed and a 3.0 x 15 noncompliant balloon was advanced. The
lesion was predilated to 12 chyna with good release of the noncompliant balloon. The noncompliant balloon was withdrawn and a Xience Skypoint 3.0 x 18 drug-eluting stent was advanced. Meticulous care was taken while positioning the stent, ensuring
that the proximal stent margin did not mcc the first diagonal. The stent was deployed at 12 atmospheres. The stent balloon was removed. Angiography confirmed preservation of the first diagonal. The IFR wire was withdrawn.
The decision was made to perform intracoronary imaging. An IVUS catheter was advanced through the guiding catheter and into the ostium of the artery. Ring down was performed once the imaging crystal was no longer inside of the guiding catheter. The
IVUS catheter was advanced into the mid LAD, beyond the stented segment. Intravascular ultrasound was performed in a retrograde fashion using a slow pullback. Intracoronary imaging demonstrated good stent apposition throughout with mild
underexpansion in the proximal and distal margin and more significant underexpansion in the midportion of the stent.
The IVUS catheter was withdrawn. A 3.25 x 12 noncompliant balloon was advanced into the stent and the stent was postdilated to 12 atmospheres in the distal segment and 14 chyna in the mid and proximal segments.. Angiography was performed in
orthogonal views, confirming good stent expansion and an excellent angiographic result. The coronary wire was withdrawn and the guide was disengaged from the artery. The catheter was removed over a standard J-wire.
Closure Device: Vascular band for the right radial artery, manual pressure for the right antecubital vein and the right common femoral vein.
Radiation dose (mGy): 1062.56
DAP (cm2.Gy): 77.9999
Fluoroscopy time (minutes): 16.6
Sedation time (minutes): 47
CONCLUSIONS:
1. Left dominant circulation with an extremely short, trifurcating left main, luminal irregularities in the RCA and circumflex, a 30-40% ostial/proximal LAD lesion and occlusive (IFR = 0.79), 70% mid LAD lesion status post successful IVUS guided
PCI (Xience Skypoint 3.0 x 18 ADILENE, postdilated with a 3.25 NC balloon) with reduction in stenosis to 0%, maintaining SHAMIR-3 flow.
2. Top normal to mildly elevated filling pressures (LVEDP = 13 mmHg, PCWP = 13 mmHg at 75.7 kg).
3. Mild pulmonary hypertension.
4. Moderate aortic valve stenosis on pullback (mean gradient 33.4 mmHg, aortic valve area 1.02 cm�).
RECOMMENDATIONS:
1. Expectant management after cardiac catheterization via right radial approach.
2. Limited weight bearing on the right wrist for one week.
3. Dual antiplatelet therapy with aspirin and ticagrelor for at least 12 months, followed by aspirin indefinitely.
4. Periodic monitoring of aortic valve disease.
5. Guideline directed medical therapy for secondary prevention.
6. Referral to cardiac rehab.
Copy to: Mike Covarrubias M.D., BERKLEY Means
Andreas Mccauley DO, FACC, FACP
[2024-02-01] MEDS: NSS 1000 IV (13:06)
--- NOTE | 2024-02-01 13:18 | PTCARENOTE ---
Assumed care of pt upon transfer from [facility] post Mid LAD stenting. Pt arrives awake and alert, Ox3, VSS CM showsNSR 60's POX 95% on RA. Right radial site intact, R-band on with 8 ml's air, Right brachial site remains CDI, right femoral site also
CDI, good CMS to both limbs. Pt advised of movement restrictions post procedure with son translating. He denies any pain or discomfort at this time, will continue to monitor closely.
--- NOTE | 2024-02-01 14:06 | CM ---
juan goodman at patients pharmacy- [facility] [phone]- his thiago abarca
--- NOTE | 2024-02-01 14:07 | CM ---
juan goodman at [facility] pharmacy- [facility] RX [phone]- his rex copay is ZERO dollars. they are ordering the medication today to be in stock tomorrow.
[2024-02-01 15:30] LABS: ACT-LR - POC > 397 Seconds (116-155)
[2024-02-01 15:49] LABS: Glucose - Point of Care 172 mg/dl (70-99)
[2024-02-01 15:53] LABS: Glucose - Point of Care 154 mg/dl (70-99)
[2024-02-01] MEDS: NOVOLOG FLEXPEN-LOW RESISTANCE 1 UNITS SC (16:06)
--- NOTE | 2024-02-01 17:00 | CM ---
spoke tp pts daughter and RUSS, pt does not speak emglish. he is prev indep, lives with his , daughter a nd RUSS lorenzo 2 story home with a first floor set up. there are 2 steps to enter. he has a cane and a walker to use if needed. planis for dc to
home when medically stable.
[2024-02-01] MEDS: BRILINTA 90 MG PO (19:51)
[2024-02-01 21:50] LABS: Glucose - Point of Care 217 mg/dl (70-99)
[2024-02-01] MEDS: LANTUS 0.200000000000000011 UNITS SC (22:19)
[2024-02-01] MEDS: CRESTOR 40 MG PO (22:20)
[2024-02-02] VITALS (7 sets, daily range): BP systolic 138–150; BP diastolic 47–59; PULSE 73–88; O2SAT 96; BMI 26.5
--- NOTE | 2024-02-02 01:56 | PTCARENOTE ---
Tele remains SR, VSS, and denies any chest pain or discomfort. Lungs w/ fine crackles 1/[address] bilaterally. Denies any SOB, and sating 94-95% RA. Instructed patient to sit in chair, and perform deep breathing exercises. Right radial,
brachial, and right groin dressings intact. Palpable pulses throughout. Patient educated on activity restrictions w/ right radial site. Family at bedside, and assisting w/ translation. Aware of POC, call garces in reach.
[2024-02-02 04:16] LABS: % Basophils 0.7 % (0-2); % Eosinophils 2.1 % (0-6); % Immature Granulocytes 0.2 % (0-0.5); % Lymphocytes 28.9 % (20.5-51.1); % Neutrophils 58.1 % (42.2-75.2); Absolute Basophils 0.1 10^3/uL (0-0.2); Absolute Eosinophils 0.3 10^3/uL (0-0.7); Absolute Lymphocytes 3.7 10^3/uL (1.2-3.4); Absolute Monocytes 1.3 10^3/uL (0.1-0.6); Absolute Neutrophils 7.5 10^3/uL (1.4-6.5); Hemoglobin 12.2 g/dL (13.0-18.0); Mean Corp Hgb Conc. 32.1 g/dL (33.0-37.0); Mean Corpuscular Hgb 22.3 pg (27.0-31.0); Mean Corpuscular Volume 69.5 fL (80.0-94.0); Mean Platelet Volume 10.9 fL (7.4-10.4); Nucleated Red Blood Cells % 0 % (-); Platelet Count 228 10^3/uL (130-400); Red Blood Cell Count 5.47 10^6/uL (4.70-6.10); Red Cell Dist. Width 15.4 % (11.5-14.5); White Blood Cell Count 12.8 10^3/uL (4.8-10.8)
[2024-02-02 04:40] LABS: Blood Urea Nitrogen 17 mg/dl (9-20); Calcium 9.4 mg/dl (8.4-10.2); Carbon Dioxide 18 mmol/L (22-30); Chloride 105 mmol/L (98-107); Estimated Creatinine Clearance 87 ml/min; Glucose 135 mg/dl (70-99); Sodium 139 mmol/L (135-145); eGFR > 60.00
[2024-02-02] MEDS: SPIRIVA RESPIMAT 2.5 MCG 2 PUFF INH (07:25)
[2024-02-02] MEDS: SYMBICORT 80/4.5 MCG INHALER 2 PUFF INH (07:25)
--- NOTE | 2024-02-02 08:00 | PTCARENOTE ---
pt received from previous RN, oriented, Thai speaking, son at bedside to translate. denies pain. SR on the monitor, HR 70s. SBP 140s. RA, 95% POX. crackles L base. denies SOB. pt abdomen s/n, denies n/v. diet tolerated well. ambulates
independently. voids. R radial, R brachial and R groin sites c/d/i. PIV. see worklist for VS, I&O, and assessment.
[2024-02-02 08:01] LABS: Glucose - Point of Care 155 mg/dl (70-99)
[2024-02-02] MEDS: BRILINTA 90 MG PO (08:03)
[2024-02-02] MEDS: VITAMIN D3 (cholecalciferol) 25 MCG PO (08:03)
[2024-02-02] MEDS: DIOVAN 320 MG PO (08:03)
[2024-02-02] MEDS: LOW STRENGTH ASPIRIN 81 MG PO (08:03)
[2024-02-02] MEDS: NORVASC 5 MG PO (08:04)
[2024-02-02] MEDS: PROTONIX 40 MG PO (08:04)
[2024-02-02] MEDS: NOVOLOG FLEXPEN-LOW RESISTANCE 1 UNITS SC (08:04)
[2024-02-02] MEDS: FARXIGA 10 MG PO (08:04)
--- NOTE | 2024-02-02 08:06 | W.PN.CD ---
Today's Communication / Plan
-
stable post PCI
continue DAPT. Importance of meds reviewed with the patient and his son
discharge to home today
Impression / Plan
-
Impression/Plan: 73 y/o [place] gentleman who presented to outpatient cardiology office to establish care endorsed chest pain and was found to have new ST changes. He was referred to the ER for full evaluation/cardiac catheterization.
#CAD
-LAD stening 02/02/24
-DAPT
#Aortic stenosis
-moderate by cath
- outpatient follow up with Dr Covarrubias
#HTN -continue current x and monitor
-
#Type II DM
-Chronic, stable.
-Hgba1c pending.
#HLD
-Continue rosuvastatin 40mg.
#COPD/IPF
-Chronic, stable.
-No acute exacerbation.
-CXR suggests inflammatory/fibrotic pattern (pulmonary edema less likely).
#Former smoker
-Continued cessation recommended.
Plastics Seasoner Operator: Dr. Covarrubias (formerly known to Dr. Arias)
Subjective/Interval History:
Nursing notes dyspnea on minimal exertion (walking to bathroom).
SaO2 91-92% on RA.
DATA:
CXR, 01/31/2024:
Physical Exam
Vital Signs/Labs
Vital Signs
Temp Pulse Resp BP Pulse Ox
97.7 F 68 18 140/52 95
02/02/24 07:41 02/02/24 07:28 02/02/24 07:41 02/02/24 08:04 02/02/24 07:41
02/01/24 02/02/24 02/03/24
06:59 06:59 06:59
Actual Weight 75.863 kg 74.4 kg
02/02/24 03:33
02/02/24 03:33
APTT Cancelled 02/01/24 12:22
Triglycerides 180 mg/dl (10-149) H 02/01/24 06:11
LDL Cholesterol, Calc 31 mg/dl 02/01/24 06:11
VLDL Cholesterol, Calc 36 mg/dl (0-30) H 02/01/24 06:11
HDL Cholesterol 26 mg/dl 02/01/24 06:11
01/31/24
14:48
Jvy-Y-Nrnurjigkaj Pept 104
LAB Results
01/31/24 01/31/24
14:48 20:07
Troponin I < 0.012 < 0.012
Physical Exam
Cardiovascular: Rhythm & rate is regular
Respiratory: Respiratory effort normal
GI: Soft and Non tender
Neuro/Psych: Alert and Oriented
Data Reviewed
-
Date of Service: February 02, 2024
Medical Decision Making: Reviewed Test Results
Medical Tests (PFT, Pathology etc): Report Reviewed by me
--- NOTE | 2024-02-02 10:58 | W.PN.HOSP.TC ---
Today's Communication/Plan
-
dc home
op f/u
Dual AP
Assessment / Plan
Assessment / Plan
Dyspnea on exertion concern for USA
-Consult cardiology
-Start aspirin 81 mg daily
-s/p hep gtt
-s/p ADILENE to LAD. Brilinata added. Per intevention cards, aspirin and ticagrelor for at least 12 months, followed by aspirin indefinitely.
-BNP at 104
#Aortic stenosis
-ECHo normal left ventricular function. EF 55%. Normal regional wall motion. Stage I diastolic dysfunction. Calcified aortic valve with mild/moderate aortic stenosis. No other significant valve abnormalities noted. No evidence of pulmonary
hypertension.
#DM2
Accu-Cheks with SSI, check HgbA1c AT 8.6
#Leukocytosis
-COVID negative.
-Chest x-ray with more extensive diffuse bilateral pulmonary interstitial inflammatory disease. In the absence of respiratory complaints or difficulties with this and family changes and acute on chronic. Specifically this may be diffuse
interstitial fibrosis, dissection pneumonia combination of the two. Possibility that this is pulmonary edema is less likely but not excluded.
-remains afebrile.
-Recommend repeat CXR in 4 weeks for resolution.
#HTN�benign
Continue amlodipine 5 mg daily, valsartan 320 mg daily
#COPD�no acute exacerbation
-Continue Trelegy Ellipta
#GERD
-Continue omeprazole 40 mg daily
#Mild hyperkalemia
-resolved. s/p dose lokelma.
Full code
d/w with son in law at bedside on daily basis.
More than 30 minutes spent in discharge including
Final examination of the patient
Summarizing hospital stay
Instructions for continuing care to all relevant caregivers
Preparation of discharge records, prescriptions, and referral forms
Total time spent (in minutes): 45
Anticipated Discharge: Today
Subjective/Interval History
-
Date of Service: February 02, 2024
no chest pain or sob.
recent viral URI
no cough
afebrile
Objective Data
-
Labs:
Laboratory Results
02/02/24
03:33
WBC 12.8 H
Hgb 12.2 L
Hct 38.0 L
Plt Count 228
Sodium 139
Potassium 4.0
Chloride 105
Carbon Dioxide 18 L
BUN 17
Creatinine 0.7
Glucose 135 H
Calcium 9.4
Vital Signs:
Vital Signs
Temp Pulse Resp BP Pulse Ox
97.7 F 78 18 150/51 95
02/02/24 07:41 02/02/24 09:00 02/02/24 07:41 02/02/24 08:41 02/02/24 08:41
I&O
02/01/24 02/02/24 02/03/24
06:59 06:59 06:59
Intake Total 240 / 240
Output Total 300 / 300
Balance -60 / -60
Physical Exam
-
General: Well Developed and No Apparent Distress
HEENT: Normocephalic, Atraumatic and Moist Mucous Membranes
Respiratory: Rhonchi
Cardiac: Regular Rhythm and S1/S2; Negative Murmur, Rub or Gallop
GI: Soft, Nontender, Nondistended and Normal Bowel Sounds; Negative Organomegaly
Rectal: Deferred by Provider
Musculoskeletal: No Clubbing, No Cyanosis and No Edema
Skin: Negative Rash
Neuro: Awake, No Motor Deficits and Nonfocal/Grossly Intact
Psych: Calm
--- NOTE | 2024-02-02 11:02 | W.DCSUMMARY ---
Discharge Summary
Discharge Data
Date of Admission: 01/31/24
Date of Discharge: 02/02/24
-
Pending Results: No
Hospital Course
73-year-old male past medical history of diabetes, aortic cirrhosis, hypertension, COPD, GERD who is presenting from cardiology office with abnormal EKG and chest pain. Patient was started on heparin drip. Patient was eval by cardiology. Patient
underwent cardiac catheterization and underwent drug-eluting stent to LAD. Patient was aspirin and Brilinta. Plan would be for dual antiplatelet agent for 12 months and then aspirin indefinitely. Underwent echocardiogram normal left ventricular
function. EF 55%. Normal regional wall motion. Stage I diastolic dysfunction. Calcified aortic valve with mild/moderate aortic stenosis. No other significant valve abnormalities noted. No evidence of pulmonary hypertension. Chest x-ray with
more extensive diffuse bilateral pulmonary interstitial inflammatory disease. In the absence of respiratory complaints or difficulties with this and family changes and acute on chronic. Specifically this may be diffuse interstitial fibrosis,
dissection pneumonia combination of the two. Possibility that this is pulmonary edema is less likely but not excluded. Patient with no cough and afebrile. Recommend repeat chest x-ray in 4 weeks for resolution. Patient be discharged home with
outpatient cardiology and primary doctor follow-up.
Discharge Plan
-
Patient Disposition: Home (Routine Discharge)
Discharge Diagnosis/Procedures: Cardiac cath, Angioplasty with stent to LAD
Unstable angina
Leukocytosis
Hyperkalemia
Condition: Fair
Diet: Low Cholesterol and Diabetic, Carb Controlled
Driving Restrictions: No driving for 24 hours
Blood Work: CBC in 1 week via primary doctor.
Others Tests: Recommend repeat Chest Xray in 4 week to see resolution of opacities.
Stand Alone Forms: DC Instructions- Cath/EP Lab
Referrals:
[facility] [Outside]
Susy Key CRNP [Specified Professional Personl] - 02/22/24 9:20 am (Cardiology followup appointment)
Leon George CRNP [Family Provider] - in less than 1 week
Additional Discharge Medication Instructions: Hold Janumet post cath, resume on tuesday am
Prescriptions:
New
Brilinta 90 mg Tablet
90 mg PO BID Qty: 60 0RF
aspirin [Children's Aspirin] 81 mg Tablet,Chewable
81 mg PO DAILY 30 Days Qty: 30 0RF
Continued
amlodipine 5 mg tablet
5 mg PO DAILY
omeprazole 40 mg capsule,delayed release(DR/EC)
40 mg PO DAILY
valsartan 320 mg tablet
320 mg PO DAILY
insulin aspart U-100 100 unit/mL (3 mL) insulin pen
18 - 20 sliding scale dose SC MEALS
rosuvastatin 40 mg tablet
40 mg PO HS
Levemir FlexPen 100 unit/mL (3 mL) insulin pen
20 unit SC HS
dapagliflozin propanediol [Farxiga] 10 mg tablet
10 mg PO DAILY
Trelegy Ellipta 100-62.5-25 mcg blister with device
1 inh INHALATION R DAILY
loratadine 10 mg Tablet
10 mg PO DAILY PRN (Reason: allergy)
cholecalciferol (vitamin D3) [Vitamin D3] 25 mcg (1,000 unit) Tablet
25 mcg PO DAILY
Bromazepam
3 mg PO DAILY PRN (Reason: anxiety)
Patient Comments:
01/31/2024: Brand name Lextanil 3, medication from [facility].
Held
Janumet 50-1,000 mg tablet
1 tab PO BID@0800,1700
Hold Instructions: Resume on 02/04/24.
Discharge Orders:
Discharge Patient (As Directed); Ordered 02/02/24
Ordered By: Goyo Lerma
Care Plan Goals
Care Plan Goals:
Problem: Readiness for enhanced knowledge related to diagnosis and treatment plan
Goal: Understand your diagnosis and treatment plan needs, including medications if applicable.
Instructions: Know your diagnosis, underlying causes and treatment plan options, including medications if applicable. Consult with your health care team to learn about your diagnosis and treatment plan, including medications if applicable.
Discharge Date and Time
Discharge Date/Time: 02/02/24 12:06
Print Language: MONGOLIAN
--- NOTE | 2024-02-02 11:49 | PTCARENOTE ---
pt VSS, no changes in assessment. son and DIL at bedside. discharge instructions reviewed w/ patient, son, and DIL. son translated. questions answered. home meds reviewed. dressings removed. IV and tele dc'd. pt dressed self. pt left via wheelchair
w/ all belongings.
== END 2024-02-02 12:06 | disposition home or self-care (01) | DRG 322 ==
LOC: IVU 17:23
PROVIDERS: Clinical Nurse Specialist Family Health; Emergency Medicine; Internal Medicine Cardiovascular Disease; Nurse Practitioner Gerontology; Physician Assistant; ADMITTING PHYSICIAN Hospitalist; EMERGENCY PHYSICIAN Emergency Medicine; FAMILY PHYSICIAN Nurse Practitioner
PROC: 4A023N8 Measurement of Cardiac Sampling and Pressure, Bilateral, Percutaneous Approach (ICD-10-PCS; 2024-02-01)
PROC: 4A033BC Measurement of Arterial Pressure, Coronary, Percutaneous Approach (ICD-10-PCS; 2024-02-01)
PROC: 027034Z Dilation of Coronary Artery, One Artery with Drug-eluting Intraluminal Device, Percutaneous Approach (ICD-10-PCS; 2024-02-01)
PROC: B240ZZ3 Ultrasonography of Single Coronary Artery, Intravascular (ICD-10-PCS; 2024-02-01)
PROC: B2111ZZ Fluoroscopy of Multiple Coronary Arteries using Low Osmolar Contrast (ICD-10-PCS; 2024-02-01)
DX: I25.110 Atherosclerotic heart disease of native coronary artery with unstable angina pectoris (principal); E11.9 Type 2 diabetes mellitus without complications; I10 Essential (primary) hypertension; J44.9 Chronic obstructive pulmonary disease, unspecified; I35.0 Nonrheumatic aortic (valve) stenosis; E78.5 Hyperlipidemia, unspecified; K21.9 Gastro-esophageal reflux disease without esophagitis; I27.20 Pulmonary hypertension, unspecified; E66.9 Obesity, unspecified; E78.00 Pure hypercholesterolemia, unspecified; I35.8 Other nonrheumatic aortic valve disorders; D72.829 Elevated white blood cell count, unspecified; E87.5 Hyperkalemia; Z72.0 Tobacco use; Z11.52 Encounter for screening for COVID-19; Z79.4 Long term (current) use of insulin
CPT/HCPCS: 71046; 76937; 80048; 80053; 80061; 82962; 83036; 83880; 84484; 85025; 85347; 85730; 87811; 92978; 93005; 93306; 93460; 93571; 94640; 97162; 97166; 99285; C1725; C1753; C1769; C1874; C1887; C1894; C9600; Q9967

== ENCOUNTER → 2024-05-02 10:22 | Outpatient (REF) | payer OTHER, SELFPAY | LOC: RCS 10:22 | PROVIDERS: ATTENDING PHYSICIAN Nurse Practitioner; FAMILY PHYSICIAN Nurse Practitioner | DX: R07.89 Other chest pain (principal) | CPT/HCPCS: 93308; 93321; 93325 ==

== ENCOUNTER 2024-09-25 08:44 | Inpatient (IN) | payer OTHER, SELFPAY ==
[2024-09-21] VITALS (7 sets, daily range): BP systolic 104–145; BP diastolic 43–79; BMI 26.4; BMI 25.3
[2024-09-21 14:06] LABS: % Basophils 0.7 % (0-2); % Eosinophils 3.5 % (0-6); % Immature Granulocytes 0.5 % (0-0.5); % Lymphocytes 33.3 % (20.5-51.1); % Monocytes 7.8 % (1.7-9.3); % Neutrophils 54.2 % (42.2-75.2); Absolute Basophils 0.1 10^3/uL (0-0.2); Absolute Eosinophils 0.4 10^3/uL (0-0.7); Absolute Immature Granulocytes 0.1 10^3/uL (0-0.05); Absolute Neutrophils 6.6 10^3/uL (1.4-6.5); Hematocrit 36.6 % (39.0-52.0); Hemoglobin 11.7 g/dL (13.0-18.0); Mean Corpuscular Hgb 23.1 pg (27.0-31.0); Mean Corpuscular Volume 72.2 fL (80.0-94.0); Nucleated Red Blood Cells % 0 % (-); Platelet Count 300 10^3/uL (130-400); Red Blood Cell Count 5.07 10^6/uL (4.70-6.10); Red Cell Dist. Width 18.4 % (11.5-14.5); White Blood Cell Count 12.1 10^3/uL (4.8-10.8)
[2024-09-21 14:27] LABS: Troponin I < 0.012 ng/ml
[2024-09-21 14:29] LABS: ALT (SGPT) 37 U/L (0-50); AST (SGOT) 47 U/L (17-59); Albumin 4.5 g/dl (3.5-5.0); Alkaline Phosphatase 83 U/L (38-126); Blood Urea Nitrogen 12 mg/dl (9-20); Calcium 9.9 mg/dl (8.4-10.2); Carbon Dioxide 23 mmol/L (22-30); Chloride 103 mmol/L (98-107); Glucose 223 mg/dl (70-99); Sodium 141 mmol/L (135-145); Total Bilirubin 0.5 mg/dl (0.2-1.3); Total Protein 8.8 g/dl (6.3-8.2); eGFR > 60.00
--- NOTE | 2024-09-21 15:56 | EDRN ---
Dr. Tang in to see pt. Pt had just ambulated to BR and back to stretcher. POX was 96% but pt very tachypneic on return to stretcher.
--- NOTE | 2024-09-21 15:59 | ED.GENMED ---
History of Present Illness
General
Chief Complaint: Chest Pain
Source: patient
Time Seen by Provider: 09/21/24 15:30
History of Present Illness
History of Present Illness:
74-year-old male presents to the emergency room from cardiology office. Patient has been experiencing increasing shortness of breath and some episodes of chest tightness over the past several days. Patient had a cardiac catheterization in late
January with stent placement. Patient also has a history of pulmonary fibrosis. Unclear if his symptoms are related to progression of pulmonary fibrosis or further coronary artery disease. Cardiology was concerned enough that they sent him to the
hospital where he should be admitted for further workup. Currently the patient denies any chest pain. However he did become quite dyspneic when walking from his bed into the bathroom and back. No fever or chills. Patient denies any cough
Phy Exam
Physical Exam
Physical Exam:
General: Awake, Alert, Oriented X3. No acute distress.
Vitals: unremarkable
Head: Atraumatic
Eyes: Pupils equal, EOMI
Throat: Airway intact, no exudates
Neck: Trachea midline
Lungs: Clear and equal b/l
Heart: Regular rate, no murmurs
Abd: Soft, Nontender, No pulsatile mass
Neuro: Nonfocal
Skin: Warm, dry, no rash
Extremities: pulses equal b/l, no edema
Scores
Heart Score for Chest Pain Patients
STEMI patient?: No
History: Moderately Suspicious
ECG: Nonspecific Repolarization
Age: >/= 65 years
Risk Factors: >/= 3 Risk Factors or History of CAD
Troponin: </= Normal Limit
Heart Score for Chest Pain Patients: 6
Heart Score Risk: 20.3% MACE over next 6 weeks
Course
Orders/Labs/Results
Orders:
Orders
09/21/24 13:31
Electrocardiogram (*1) Urgent
Reason for Study: Chest Pain
09/21/24 13:32
EKG- Treatment ONCE
09/21/24 13:50
Complete Blood Count/With Diff Urgent
Comprehensive Metabolic Panel Urgent
NT-proBNP Urgent
Comment: ADD ON
Troponin I Urgent
09/21/24 15:59
CR Chest - 2 Views Urgent
Comment:
Reason For Exam: sob
09/21/24 16:51
Echo 2D MMode Color/Doppler Urgent
Reason for Study: Chest pain
09/21/24 17:15
Add On- LAB Urgent
Tests Added?: proBNP
09/21/24 17:25
Admit/Transfer Patient As Directed
Co-Sign Provider:
Level of Care: Observation services
Assign to:: Telemetry
Physician / Group: Glen
Diagnosis: Chest Pain
Reason for Telemetry: Chest Pain syndromes
Date to Stop Telemetry: 09/23/24
Time to Stop Telemetry: 11:00
PRN Pain Medication Management As Directed
May give lesser potent ordered pain med per pt: Yes
preference::
Protocol:: Medication orders for pain may be administered in a
manner that supports deferring to patient preference
when the pt is:
- Requesting an ordered lesser potent pain medication.
Least to most potent pain medications are defined
as: acetaminophen < NSAID < tramadol < opioids
(morphine, oxycodone, hydromorphone).
- Requesting a lesser dose of the same medication IF
ORDERED.
- Requesting a less intrusive route of administration
if both routes are prescribed by the provider (PO <
IV).
09/21/24 17:27
Code Status As Directed
Resuscitation Status: Full Code
09/21/24 17:31
Aspirin Chewable [Low Strength Aspirin] 324 mg PO NOW STA
09/23/24 11:00
DC Protocol for Telemetry ONCE
Abnormal Lab Results
09/21/24
13:50
WBC 12.1 H 10^3/uL
(4.8-10.8)
Hgb 11.7 L g/dL
(13.0-18.0)
Hct 36.6 L %
(39.0-52.0)
MCV 72.2 L fL
(80.0-94.0)
MCH 23.1 L pg
(27.0-31.0)
MCHC 32.0 L g/dL
(33.0-37.0)
RDW 18.4 H %
(11.5-14.5)
Abs Immat Gran (auto) 0.1 H 10^3/uL
(0-0.05)
Absolute Neuts (auto) 6.6 H 10^3/uL
(1.4-6.5)
Absolute Lymphs (auto) 4.0 H 10^3/uL
(1.2-3.4)
Absolute Monos (auto) 1.0 H 10^3/uL
(0.1-0.6)
Glucose 223 H mg/dl
(70-99)
Total Protein 8.8 H g/dl
(6.3-8.2)
09/21/24 13:50
09/21/24 13:50
Vital Signs
Initial and Last Documented VS:
Initial Vital Signs
Pulse Resp BP Pulse Ox
70 20 136/54 97
09/21/24 13:40 09/21/24 13:40 09/21/24 13:40 09/21/24 13:40
Last Documented Vital Signs
Temp Pulse Resp BP Pulse Ox
97.9 F 72 17 128/79 99
09/21/24 13:46 09/21/24 18:15 09/21/24 18:15 09/21/24 18:00 09/21/24 18:15
MDM/Problems Addressed
Differential Diagnosis Includes:
Unstable angina, progression of pulm fibrosis, symptomatic anemia, heart failure
MDM/Problems Addressed:
With increased shortness of breath and some chest tightness. He had a recent stent. EKG does appear to have somewhat more pronounced ST depression laterally. However troponin is negative. Chest x-ray shows changes consistent with pulmonary
fibrosis which appears unchanged from previous. Patient was sent by cardiology for hospitalization stay to perform a more thorough workup to determine the cause of his symptoms. Case discussed with the hospitalist
*Pulse Oximetry
Patient hypoxic: no
*EKG
Interpreted by ED Provider?: Yes
Heart Rate: 70
Rate: normal
Rhythm: sinus
Ischemia: ST depression (inf/lateral somewhat more pronounced than previous)
*[facility]anner Interpretation
Rate: normal
Interpretation: normal
Rhythm: sinus
*Critical Care Note
Total Time (30-74mins, 75-104mins- exclusive of procedures): Not Applicable
Data Reviewed
Review of Other/Old Records Reveals: Operative Reports (Cath report) and Discharge Summary (Recent hospitalization for cardiac cath)
ED Attending Note
-
Portions of this chart may have been created with voice recognition software.� Occasional wrong word or��sound alike� substitutions may have occurred due to the inherent limitations of voice recognition software.
Discharge Plan
Departure
Patient Disposition: Admit
Date of Disposition: 09/21/24
Time of Disposition: 16:32
Admit to: Telemetry
Presentation/result/management discussed w/ accepting MD/DO: Hospitalist
Condition: Fair
Discharge Problem:
Chest pain
Interventions
Interventions:
*Risk Screen - Suicide Last Done: 09/21/24 13:44
*General Assessment Last Done: 09/21/24 13:44
ED- Fall Risk Assessment Last Done: 09/21/24 15:46
*ED COVID-19 Vaccine History Last Done: 09/21/24 13:44
ED- Cardiac Assessment Last Done: 09/21/24 15:46
--- NOTE | 2024-09-21 17:05 | EDRN ---
[facility] at this time.
--- NOTE | 2024-09-21 17:12 | EDRN ---
Kentrell ANTONIO in room w/pt.
--- NOTE | 2024-09-21 17:13 | W.PN.CD ---
Addendum entered and electronically signed by Nestor Jay MD 09/22/24 07:38:
I saw and examined the patient.
The RADIO MAINTAINER's note was reviewed and I agree with the note.
Comment: Patient was seen on day of service.
Echo pending
plan for cath Tuesday
Addendum entered and electronically signed by BERKLEY Rose 09/21/24 17:32:
Patient speaks Persian. He prefers to use his daughter for translation versus a professional translating service.
I was just notified by the primary service that the patient self discontinued his aspirin 3 months after PCI. ASA 324 mg now followed by 81 mg daily.
Original Note:
Today's Communication / Plan
-
BACKGROUND: 74M with aortic stenosis, hypertension, hyperlipidemia, IDDM, COPD, and former smoker who was referred to the emergency department after being evaluated in the outpatient cardiology office with complaints of JOYNER and chest pain with
inferolateral T wave inversion
Primary Multi Punch Operator: Dr. Covarrubias
IMPRESSION/PLAN:
Chest pain with dyspnea on exertion
-Differential diagnosis includes: Angina, severe aortic stenosis, and COPD exacerbation
-Echocardiogram
-EKG with inferolateral T wave inversion, troponin <0.012
Coronary artery disease
-Chest pain as above
-PCI to LAD 02/02/2024, on DAPT (ticagrelor/aspirin)
-Continue medical management
Aortic stenosis
-Update echocardiogram
Hypertension, stable, follow
Dyslipidemia, continue rosuvastatin
Type 2 diabetes mellitus requiring insulin, per primary service
COPD, followed by Dr. Marcus
DATA:
Cardiac catheterization, 02/01/2024:
CONCLUSIONS:
1. Left dominant circulation with an extremely short, trifurcating left main, luminal irregularities in the RCA and circumflex, a 30-40% ostial/proximal LAD lesion and occlusive (IFR = 0.79), 70% mid LAD lesion status post successful IVUS guided
PCI (Xience Skypoint 3.0 x 18 ADILENE, postdilated with a 3.25 NC balloon) with reduction in stenosis to 0%, maintaining SHAMIR-3 flow.
2. Top normal to mildly elevated filling pressures (LVEDP = 13 mmHg, PCWP = 13 mmHg at 75.7 kg).
3. Mild pulmonary hypertension.
4. Moderate aortic valve stenosis on pullback (mean gradient 33.4 mmHg, aortic valve area 1.02 cm�).
Transthoracic echocardiogram, 05/02/2024:
CONCLUSIONS
Normal biventricular size and systolic function without regional wall motion
abnormality.
Mild concentric left ventricular hypertrophy.
Moderate aortic stenosis (mean 22 mmHg and ABBY 1.4 cms).
No significant change since the prior study of 02/01/2024 when the was graded
at mild to moderate.
Impression / Plan
-
This is the consultation summary. Please see scanned consultation.
Cardiac catheterization Tuesday
Physical Exam
Vital Signs/Labs
Vital Signs
Temp Pulse Resp BP Pulse Ox
97.9 F 72 19 145/44 98
09/21/24 13:46 09/21/24 16:00 09/21/24 16:00 09/21/24 16:00 09/21/24 16:00
09/20/24 09/21/24 09/22/24
06:59 06:59 06:59
Actual Weight 78.6 kg
09/21/24 13:50
09/21/24 13:50
LAB Results
09/21/24
13:50
Troponin I < 0.012
Physical Exam
Constitutional: No acute distress and Comfortable
EENT: Anicteric and Moist mucous membranes
Cardiovascular: Rhythm & rate is regular, Pedal edema is absent, Systolic murmur present and S1S2 is normal
Respiratory: Crackles Present
GI: Soft, Distention absent, Flat, Non tender and Normal bowel sounds
Neuro/Psych: AO x 3
Other: Skin (warm and dry)
Data Reviewed
-
Date of Service: September 21, 2024
--- NOTE | 2024-09-21 17:23 | HPS.HSE ---
Family Physician
-
Family Physician: BERKLEY Means
Chief Complaint
-
Chest Pain and Dyspnea on Exertion
History of Present Illness
Patient is a 74 y/o male past medical history of CAD with recent drug eluting LAD stent in January 2024, hypertension, hyperlipidemia, diabetes and pulmonary fibrosis who presents with chest pain and dyspnea on exertion. History is obtained from
patient's daughter due to language barrier. She noted patient to appear more short of breath with activity over the past few weeks. Patient began to complain over chest pain with activity over the past week, but daughter expresses this may have
been going on for longer. There have no reports of weight gain, and patient denies lower extremity edema.
Review of medication list revealed patient stopped taking his aspirin about 5 months ago (3 months after his stent was placed).
Medical History
Past Medical History
Past Medical History: Reports Other
Additional Past Medical History:
Coronary Artery Disease s/p LAD Stent in January 2024
Essential Hypertension
Hyperlipidemia
Diabetes Mellitus, Type II
COPD
Idiopathic Pulmonary Fibrosis
GERD
Past Surgical History: Reports None
Social History
Tobacco: Former Smoker (Quit age 51 smoked 10 years 1/2 pack/day)
Alcohol: None
Drug: None
Personal:
Living: With Family
Employment: Retired
Family History
Family History: Other (Father CVA age 95, mother age CVA 85)
Allergies / Home Medications
Allergies reflects when Allergies were last updated in [facility].
Home Medications with original date entered in [facility]
Allergy/Medication List:
Allergies
Allergy/AdvReac Type Severity Reaction Status Date / Time
No Known Allergies Allergy Verified 09/21/24 13:42
Home Medications
amlodipine 5 mg tablet 5 mg PO DAILY Blood Pressure 01/31/24
cholecalciferol (vitamin D3) 25 mcg (1,000 unit) tablet (Vitamin D3) 25 mcg PO DAILY Supplement 01/31/24
fluticasone fur. 100 mcg-umeclid 62.5 mcg-vilant 25 mcg inhalat.powder (Trelegy Ellipta) 1 inh inhalation R DAILY Lung/Breathing Issues 01/31/24
insulin aspart U-100 100 unit/mL (3 mL) subcutaneous pen 22 unit SC MEALS Diabetes 01/31/24
omeprazole 40 mg capsule,delayed release 40 mg PO DAILY Gastrointestinal Issue 01/31/24
rosuvastatin 40 mg tablet 40 mg PO HS High Cholesterol 01/31/24
sitagliptin phosphate 50 mg-metformin 1,000 mg tablet (Janumet) 1 tab PO BID@0800,1700 Diabetes 01/31/24
valsartan 320 mg tablet 320 mg PO DAILY 01/31/24
ticagrelor 90 mg tablet (Brilinta) 90 mg PO BID #60 tabs 02/01/24
albuterol sulfate 90 mcg/actuation aerosol inhaler 2 puff inhalation R Q6HPRN PRN sob 09/21/24
docusate sodium 100 mg tablet (Stool Softener) 100 mg PO HS 09/21/24
ferrous sulfate 325 mg (65 mg iron) tablet 325 mg PO DAILY 09/21/24
insulin detemir U-100 100 unit/mL (3 mL) subcutaneous pen (Levemir FlexTouch U-100 Insulin) 40 unit SC HS 09/21/24
nintedanib 150 mg capsule (Ofev) 150 mg PO Q12H 09/21/24
prednisone 5 mg tablet 5 mg PO DAILYPRN PRN mild pain 09/21/24
Review of Systems
-
Unable to obtain full review of systems at this time due to: Language Barrier
Physical Exam
Vital Signs
Vital Signs
Temp Pulse Resp BP Pulse Ox
97.9 F 72 19 145/44 98
09/21/24 13:46 09/21/24 16:00 09/21/24 16:00 09/21/24 16:00 09/21/24 16:00
Physical Exam
General: Comfortable and Conversant
HEENT: Anicteric and Moist mucous membranes
Respiratory: Rales (Fine faint rales bilaterally) and Non Labored Respirations
Cardiac: S1/S2, Regular Rhythm and Murmur (2/6 systolic murmur)
GI: Soft and Non Tender
Rectal: Deferred by Provider
Musculoskeletal: No Clubbing, No Cyanosis and Other (Trace bilateral lower extremity edema)
Skin: Warm and Dry
Neuro: Awake, Alert and Nonfocal/grossly intact
Psych: Calm
Laboratory Results
-
09/21/24 13:50
09/21/24 13:50
Laboratory Results
Total Bilirubin 0.5 mg/dl (0.2-1.3) 09/21/24 13:50
AST 47 U/L (17-59) 09/21/24 13:50
ALT 37 U/L (0-50) 09/21/24 13:50
Alkaline Phosphatase 83 U/L (38-126) 09/21/24 13:50
Troponin I < 0.012 ng/ml 09/21/24 13:50
Data Reviewed
-
Lab Data: Labs Reviewed by me
Old Records: Reviewed
Impression/Plan
-
Chest Pain, possible angina vs progression of aortic stenosis
-Reviewed with Cardiology
-Check Echocardiogram
-Resume aspirin
-Plan for cardiac cath on Tuesday
Coronary Artery Disease s/p LAD Stent in January 2024
-Continue aspirin and Brilinta
Essential Hypertension
-Continue amlodipine and valsartan
Hyperlipidemia
-Continue Crestor
Diabetes Mellitus, Type II
-Hold Janumet
-Continue Novolog and Levemir
-Monitor sugars and continue coverage insulin
COPD / Idiopathic Pulmonary Fibrosis
-Continue Ofev
-Continue Trelegy
GERD
-Continue Protonix
DVT proph: SCDs
Code Status: Full Code
[2024-09-21 18:00] LABS: NT-proBNP 119 pg/ml
--- NOTE | 2024-09-21 18:08 | W.PN.UPDATE ---
Update Note
Progress Note Update
This is an addendum to the H&P written by Kasia Flor on 09/21/2024.� Patient seen and examined independently with PA.
74-year-old male past medical history of CAD status post LAD stent on 02/01, moderate aortic stenosis, diabetes, hypertension, COPD/idiopathic pulmonary fibrosis, GERD, hyperlipidemia presenting with ongoing chest pain and shortness of breath with
exertion.
EKG shows normal sinus rhythm, LVH with repolarization abnormality no obvious ischemic changes, troponin negative.� Echocardiogram pending.� Chest x-ray appears to show pulmonary fibrosis changes are improved from prior chest x-ray.
As per daughter patient apparently stopped taking aspirin after 3 months as she thought this was recommended by guidelines.
Presentation consistent with stable/possible unstable angina.� Cardiology planning on cardiac catheterization on Tuesday.� Restart aspirin in addition to Brilinta.� Hold oral diabetic medications.
[2024-09-21] MEDS: LOW STRENGTH ASPIRIN 324 MG PO (18:37)
[2024-09-21] MEDS: NOVOLOG FLEXPEN SC (20:53)
[2024-09-21 21:20] LABS: Glucose - Point of Care 119 mg/dl (70-99)
[2024-09-21] MEDS: CRESTOR 40 MG PO (21:55)
[2024-09-21] MEDS: BRILINTA 90 MG PO (21:56)
[2024-09-21] MEDS: COLACE 100 MG PO (21:56)
[2024-09-21] MEDS: NOVOLOG FLEXPEN 22 UNITS SC (21:58)
[2024-09-22 00:17] LABS: Glucose - Point of Care 139 mg/dl (70-99)
[2024-09-22] MEDS: LANTUS SC (00:28)
[2024-09-22 03:44] VITALS: BP 128/55
[2024-09-22 05:25] LABS: Glucose - Point of Care 150 mg/dl (70-99)
[2024-09-22 05:50] LABS: Hematocrit 34.7 % (39.0-52.0); Hemoglobin 11.1 g/dL (13.0-18.0); Mean Corpuscular Hgb 23.2 pg (27.0-31.0); Mean Corpuscular Volume 72.4 fL (80.0-94.0); Mean Platelet Volume 9.8 fL (7.4-10.4); Platelet Count 273 10^3/uL (130-400); Red Blood Cell Count 4.79 10^6/uL (4.70-6.10); White Blood Cell Count 11.5 10^3/uL (4.8-10.8)
[2024-09-22 06:00] VITALS: BMI 25.0
[2024-09-22 06:16] LABS: Blood Urea Nitrogen 15 mg/dl (9-20); Carbon Dioxide 22 mmol/L (22-30); Chloride 105 mmol/L (98-107); Estimated Creatinine Clearance 92 ml/min; Glucose 150 mg/dl (70-99); Potassium 4.5 mmol/L (3.5-5.1); Sodium 143 mmol/L (135-145); eGFR > 60.00
[2024-09-22 08:00] VITALS: BP 135/71
[2024-09-22 08:08] LABS: Glucose - Point of Care 192 mg/dl (70-99)
[2024-09-22] MEDS: DIOVAN 320 MG PO (08:29)
[2024-09-22] MEDS: VITAMIN D3 (cholecalciferol) 25 MCG PO (08:29)
[2024-09-22] MEDS: LOW STRENGTH ASPIRIN 81 MG PO (08:30)
[2024-09-22] MEDS: FEOSOL 325 MG PO (08:30)
[2024-09-22] MEDS: NORVASC 5 MG PO (08:30)
[2024-09-22] MEDS: PROTONIX 40 MG PO (08:30)
[2024-09-22] MEDS: BRILINTA 90 MG PO ×2 (08:30→22:02)
--- NOTE | 2024-09-22 08:37 | W.PN.HOSP.TC ---
Today's Communication/Plan
-
cath tuesday
Assessment / Plan
Assessment / Plan
Gen: NAD, Awake and alert
Eyes: EOMI, PERRLA, no scleral icterus.
Neck: supple.
CV: RRR, +S1/S2, 3/6 LESTER
Resp: mild rales in the bases
Abd: +BS, soft, NT, ND
Skin: No rashes.
Neuro: CN 2-12 intact, non-focal.
Psych: Normal mood and affect.
Chest Pain:
-angina vs progression of aortic stenosis
-cards c/s
-Check Echo
-cont ASA/Brilinta/statin
-Plan for cardiac cath on 09/24/24
Other problems:
CAD s/p LAD Stent in January 2024: cont ASA/Brilinta/statin
Essential Hypertension: cont amlodipine/valsartan
Hyperlipidemia: cont Crestor
DM2: Holding Janumet, cont premeal Novolog/Levemir/SSI/accuchecks
COPD and IPF: cont Ofev/Trelegy
GERD: cont PPI
FULL/SCDs
Anticipated Discharge: > 48 hours
Subjective/Interval History
-
Date of Service: September 22, 2024
No new complaints.
Objective Data
-
Labs:
Laboratory Results
09/22/24
05:25
WBC 11.5 H
Hgb 11.1 L
Hct 34.7 L
Plt Count 273
Sodium 143
Potassium 4.5
Chloride 105
Carbon Dioxide 22
BUN 15
Creatinine 0.7
Glucose 150 H
Calcium 9.0
Vital Signs:
Vital Signs
Temp Pulse Resp BP Pulse Ox
98 F 77 16 135/71 93
09/22/24 08:00 09/22/24 08:00 09/22/24 08:00 09/22/24 08:00 09/22/24 08:00
I&O
09/21/24 09/22/24 09/23/24
06:59 06:59 06:59
Intake Total 480 / 480
Balance 480 / 480
[2024-09-22] MEDS: NOVOLOG FLEXPEN 22 UNITS SC ×3 (08:38→18:32)
[2024-09-22] MEDS: NOVOLOG FLEXPEN-MODERATE RESISTANCE 1 UNITS SC ×2 (08:40→12:56)
[2024-09-22] MEDS: SYMBICORT 80/4.5 MCG INHALER 2 PUFF INH ×2 (09:07→21:13)
[2024-09-22] MEDS: SPIRIVA RESPIMAT 2.5 MCG 2 PUFF INH (09:07)
[2024-09-22 10:04] LABS: Glycohemoglobin (HgbA1c) 8.5 % (4.0-5.6)
[2024-09-22 11:26] LABS: Glucose - Point of Care 157 mg/dl (70-99)
[2024-09-22 11:35] VITALS: BP 142/66
--- NOTE | 2024-09-22 12:53 | W.PN.CD ---
Today's Communication / Plan
-
Cont meds
NPO after midnight on Tuesday for cath Tuesday
Impression / Plan
-
74M with aortic stenosis, hypertension, hyperlipidemia, IDDM, COPD, and former smoker who was referred to the emergency department after being evaluated in the outpatient cardiology office with complaints of JOYNER and chest pain with inferolateral T
wave inversion
Primary Clean Up Supervisor: Dr. Covarrubias
IMPRESSION/PLAN:
Chest pain with dyspnea on exertion
-Differential diagnosis includes: Angina, severe aortic stenosis, and COPD exacerbation
-Echocardiogram
-EKG with inferolateral T wave inversion, troponin <0.012
Coronary artery disease
-Chest pain as above
-PCI to LAD 02/02/2024, on DAPT (ticagrelor/aspirin)
-stopped aspirin 3 months after PCI, recurrent disease?
- cath Tuesday
Aortic stenosis moderate
-echo below
Hypertension, stable, follow
Dyslipidemia, continue rosuvastatin
Type 2 diabetes mellitus requiring insulin, per primary service
COPD, followed by Dr. Marcus
Subjective: Feels OK no new CP
Echo CONCLUSIONS
Normal LV size and function with no regional wall motion abnormalities.
LVEF is 55-60% by visual estimation.
Mild concentric LVH.
Normal right ventricular size and function.
Moderate aortic stenosis.
Compared to prior from May 02, 2024, no significant change.
Physical Exam
Vital Signs/Labs
Vital Signs
Temp Pulse Resp BP Pulse Ox
98.2 F 79 16 142/66 92
09/22/24 11:35 09/22/24 11:35 09/22/24 11:35 09/22/24 11:35 09/22/24 11:35
09/21/24 09/22/24 09/23/24
06:59 06:59 06:59
Actual Weight 164 lb 5 oz
09/22/24 05:25
09/22/24 05:25
09/21/24
13:50
[id number]-Vohlrotntrr Pept 119
LAB Results
09/21/24
13:50
Troponin I < 0.012
Physical Exam
Constitutional: No acute distress and Comfortable
EENT: Anicteric
Cardiovascular: Rhythm & rate is regular and Pedal edema is absent
Respiratory: Respiratory effort normal and Lungs clear to auscul.
GI: Soft
Neuro/Psych: Alert and Oriented
Data Reviewed
-
Date of Service: September 22, 2024
EKG: Tracing Personally Visualized and interpreted (sr)
Echo: Tracing Personally Visualized and interpreted
Labs: Labs Reviewed by me
[2024-09-22 15:02] VITALS: BP 122/55
--- NOTE | 2024-09-22 16:39 | PTCARENOTE ---
Rec'd pt from room 338, oriented to room and unit. daughter at bedside for translation. Pt denies sob and chest pain at this time. pt is on tele running nsr. Pt call garces is within reach, dtr rings for pt's needs. will cont to monitor.
[2024-09-22 17:24] LABS: Glucose - Point of Care 146 mg/dl (70-99)
[2024-09-22] MEDS: NOVOLOG FLEXPEN-MODERATE RESISTANCE SC (18:09)
[2024-09-22 19:00] VITALS: BP 151/57
[2024-09-22 19:07] LABS: Glucose - Point of Care 127 mg/dl (70-99)
[2024-09-22 21:30] LABS: Glucose - Point of Care 174 mg/dl (70-99)
[2024-09-22] MEDS: CRESTOR 40 MG PO (21:57)
[2024-09-22] MEDS: COLACE 100 MG PO (21:57)
[2024-09-22] MEDS: LANTUS 0.4 UNITS SC (22:03)
[2024-09-22 23:00] VITALS: BP 130/64
[2024-09-23] VITALS (7 sets, daily range): BP systolic 104–134; BP diastolic 48–83; BMI 25.0
[2024-09-23 08:04] LABS: Glucose - Point of Care 180 mg/dl (70-99)
[2024-09-23] MEDS: NOVOLOG FLEXPEN-MODERATE RESISTANCE 1 UNITS SC ×2 (08:16→12:37)
[2024-09-23] MEDS: NOVOLOG FLEXPEN 22 UNITS SC ×3 (08:16→16:38)
[2024-09-23] MEDS: FEOSOL 325 MG PO (08:17)
[2024-09-23] MEDS: PROTONIX 40 MG PO (08:17)
[2024-09-23] MEDS: LOW STRENGTH ASPIRIN 81 MG PO (08:17)
[2024-09-23] MEDS: DIOVAN 320 MG PO (08:17)
[2024-09-23] MEDS: VITAMIN D3 (cholecalciferol) 25 MCG PO (08:17)
[2024-09-23] MEDS: BRILINTA 90 MG PO ×2 (08:18→21:34)
[2024-09-23] MEDS: NORVASC PO (08:21)
[2024-09-23] MEDS: SYMBICORT 80/4.5 MCG INHALER 2 PUFF INH ×2 (08:33→18:06)
[2024-09-23] MEDS: SPIRIVA RESPIMAT 2.5 MCG 2 PUFF INH (08:33)
--- NOTE | 2024-09-23 09:55 | W.PN.HOSP.TC ---
Today's Communication/Plan
-
see bold
Assessment / Plan
Assessment / Plan
Gen: NAD, Awake and alert
Eyes: EOMI, PERRLA, no scleral icterus.
Neck: supple.
CV: remains RRR, +S1/S2, 3/6 LESTER
Resp: CTAB
Skin: No rashes.
Neuro: remains CN 2-12 intact, non-focal.
Psych: Normal mood and affect.
Echo: Normal LV size and function with no regional wall motion abnormalities.
LVEF is 55-60% by visual estimation.
Mild concentric LVH.
Normal right ventricular size and function.
Moderate aortic stenosis.
Compared to prior from May 02, 2024, no significant change.
Chest Pain:
-angina vs progression of aortic stenosis
-cards following
-Echo above
-cont ASA/Brilinta/statin
-Plan for cardiac cath on 09/24/24
Other problems:
CAD s/p LAD Stent in January 2024: cont ASA/Brilinta/statin
Essential Hypertension: cont amlodipine/valsartan
Hyperlipidemia: cont Crestor
DM2: Holding Janumet, cont premeal Novolog/Levemir/SSI/accuchecks
COPD and IPF: cont Ofev/Trelegy
GERD: cont PPI
FULL/SCDs
Anticipated Discharge: Within 24 hours
Subjective/Interval History
-
Date of Service: September 23, 2024
Objective Data
-
Vital Signs:
Vital Signs
Temp Pulse Resp BP Pulse Ox
97.8 F 79 18 117/57 94
09/23/24 08:18 09/23/24 08:37 09/23/24 08:37 09/23/24 08:18 09/23/24 08:37
I&O
09/22/24 09/23/24 09/24/24
06:59 06:59 06:59
Intake Total 480 / 480 1280 / 1280
Balance 480 / 480 1280 / 1280
[2024-09-23 12:16] LABS: Glucose - Point of Care 161 mg/dl (70-99)
--- NOTE | 2024-09-23 13:26 | W.PN.CD ---
Today's Communication / Plan
-
cath tomorrow NPO after midnight
Impression / Plan
-
74M with aortic stenosis, hypertension, hyperlipidemia, IDDM, COPD, and former smoker who was referred to the emergency department after being evaluated in the outpatient cardiology office with complaints of JOYNER and chest pain with inferolateral T
wave inversion
Primary Identity Management Consultant: Dr. Covarrubias
IMPRESSION/PLAN:
Chest pain with dyspnea on exertion
-Differential diagnosis includes: Angina, severe aortic stenosis, and COPD exacerbation
-Echocardiogram
-EKG with inferolateral T wave inversion, troponin <0.012
Coronary artery disease
-Chest pain as above
-PCI to LAD 02/02/2024, on DAPT (ticagrelor/aspirin)
-stopped aspirin 3 months after PCI, recurrent disease?
- cath Tuesday
Aortic stenosis moderate
-echo below
Hypertension, stable, follow
Dyslipidemia, continue rosuvastatin
Type 2 diabetes mellitus requiring insulin, per primary service
COPD, followed by Dr. Marcus
Subjective: Feels OK no new CP
Echo CONCLUSIONS
Normal LV size and function with no regional wall motion abnormalities.
LVEF is 55-60% by visual estimation.
Mild concentric LVH.
Normal right ventricular size and function.
Moderate aortic stenosis.
Compared to prior from May 02, 2024, no significant change.
Physical Exam
Vital Signs/Labs
Vital Signs
Temp Pulse Resp BP Pulse Ox
97.8 F 87 16 104/83 95
09/23/24 08:18 09/23/24 12:16 09/23/24 12:16 09/23/24 12:16 09/23/24 12:16
09/22/24 09/23/24 09/24/24
06:59 06:59 06:59
Actual Weight 164 lb 5 oz 164 lb 6.4 oz
09/22/24 05:25
09/22/24 05:25
09/21/24
13:50
Suh-R-Mtueugqqnqt Pept 119
LAB Results
09/21/24
13:50
Troponin I < 0.012
Physical Exam
Constitutional: No acute distress and Comfortable
EENT: Anicteric
Cardiovascular: Rhythm & rate is regular and Pedal edema is absent
Respiratory: Respiratory effort normal and Lungs clear to auscul.
GI: Soft
Neuro/Psych: AO x 3
Data Reviewed
-
Date of Service: September 23, 2024
EKG: Tracing Personally Visualized and interpreted (sr)
Echo: Report Reviewed by me
Labs: Labs Reviewed by me
--- NOTE | 2024-09-23 15:38 | CM ---
Patient who speaks Hungarian. Plan cardiac cath tomorrow. Room air.
Spoke with patient's daughter Clotilde;
the patient resides with his Candida Rogers, daughter Tommie, son in law Jaren and 2 grandchildren in a 2 story house, with 2 [employer], and first floor bedroom/bath.
The patient is forgetful at baseline and needs help by the daughter with his medications.
He is assisted with ADLs and only able to ambulate short distances due to SOB.
He uses his SPC in the house, RW at times and borrows a w/c for medical appointments.
No housing/food/utility/transport insecurity.
Daughter says patient is very [place] and needs bilateral hearing aides, however cannot afford $5000 cost - informed her hearing aides are not covered by insurance and recommended she look on [employer] for resources to cover DME.
Prior VN, can't remember agency
No prior SNF.
PCP - Leon George
Pharmacy - [facility]
Daughter interested in obtaining a w/c for patient.
Message to Dr Pierson requesting PT Eval.
Plan follow up after seen by PT, and possibly order w/c based on PT assessment of functional mobility.
[2024-09-23 16:37] LABS: Glucose - Point of Care 115 mg/dl (70-99)
[2024-09-23] MEDS: NOVOLOG FLEXPEN-MODERATE RESISTANCE SC (16:38)
[2024-09-23] MEDS: CRESTOR 40 MG PO (21:34)
[2024-09-23] MEDS: COLACE 100 MG PO (21:34)
[2024-09-23 21:59] LABS: Glucose - Point of Care 225 mg/dl (70-99)
[2024-09-23] MEDS: LANTUS 0.4 UNITS SC (22:01)
[2024-09-24] VITALS (13 sets, daily range): BP systolic 105–151; BP diastolic 50–65; PULSE 69; O2SAT 94; BMI 25.2
[2024-09-24 06:03] LABS: Glucose - Point of Care 128 mg/dl (70-99)
[2024-09-24 07:10] LABS: Hematocrit 35.5 % (39.0-52.0); Hemoglobin 11.3 g/dL (13.0-18.0); Mean Corp Hgb Conc. 31.8 g/dL (33.0-37.0); Mean Corpuscular Hgb 23.1 pg (27.0-31.0); Mean Corpuscular Volume 72.4 fL (80.0-94.0); Mean Platelet Volume 10.2 fL (7.4-10.4); Platelet Count 263 10^3/uL (130-400); Red Cell Dist. Width 18.2 % (11.5-14.5); White Blood Cell Count 12.4 10^3/uL (4.8-10.8)
[2024-09-24 07:31] LABS: Blood Urea Nitrogen 23 mg/dl (9-20); Calcium 9.2 mg/dl (8.4-10.2); Carbon Dioxide 24 mmol/L (22-30); Chloride 105 mmol/L (98-107); Estimated Creatinine Clearance 72 ml/min; Glucose 138 mg/dl (70-99); Potassium 4.8 mmol/L (3.5-5.1); Sodium 142 mmol/L (135-145); eGFR > 60.00
[2024-09-24] MEDS: SYMBICORT 80/4.5 MCG INHALER 2 PUFF INH ×2 (08:06→19:33)
[2024-09-24] MEDS: SPIRIVA RESPIMAT 2.5 MCG 2 PUFF INH (08:06)
[2024-09-24] MEDS: NOVOLOG FLEXPEN SC ×2 (09:03→13:43)
[2024-09-24] MEDS: NORVASC PO (09:04)
[2024-09-24] MEDS: BRILINTA 90 MG PO ×2 (09:06→19:42)
[2024-09-24] MEDS: VITAMIN D3 (cholecalciferol) 25 MCG PO (09:06)
[2024-09-24] MEDS: LOW STRENGTH ASPIRIN 81 MG PO (09:06)
[2024-09-24] MEDS: FEOSOL 325 MG PO (09:06)
[2024-09-24] MEDS: PROTONIX 40 MG PO (09:06)
[2024-09-24] MEDS: DIOVAN 320 MG PO (09:13)
--- NOTE | 2024-09-24 09:13 | W.PN.HOSP.TC ---
Addendum entered and electronically signed by Kaykay Pepe MD 09/24/24 16:47:
I saw and evaluated the patient independently. I reviewed the resident�s note and agree with findings and plan as documented by Dr. Bay.
GENERAL: well developed, well nourished, male in no apparent distress--limited Mexican speaking--family at bedside
HEENT: NC/AT--no O2 requirements
HEART: regular rate and rhythm, +S1, +S2
LUNGS : clear to auscultation bilaterally
ABDOM: soft, nontender, nondistended, + bowel sounds
EXT: no cyanosis, clubbing, or edema
NEUROLOGIC: grossly intact
chest pain--Angina (more likely)--had ADILENE placed in 01/2024 and stopped aspirin 3 months after stent placement versus progression of aortic stenosis--for cardiac cath today (had 2 high grade left circumflex lesions stented by cards today
09/24/24)--needs 1 year of uninterrupted DAPT--apprec cards--Echo EF 55-60%--Continue aspirin, Brilinta, statin
CAD status post LAD stent placement in January 2024--Continue aspirin, Brilinta, statin
Essential hypertension--Continue amlodipine and valsartan
HLD--Continue Crestor
Diabetes mellitus type 2--Hold Janumet, continue Premeal NovoLog, Levemir, SSI, Accu-Cheks--can restart Janumet 48 hours post cath (metformin part of Janumet needs to be held)
COPD-- no acute exacerbation--Continue Ofev 150 mg and Trelegy
GERD--Continue omeprazole 40 mg
code status --FULL CODE
DVT proph --SCDs
anticipate d/c tomorrow
Original Note:
Today's Communication/Plan
-
.
Assessment / Plan
Assessment / Plan
Patient is a 74-year-old male with PMH of CAD, status post LAD stent on 01/2024, aortic stenosis, diabetes, hypertension, COPD, GERD, hyperlipidemia who presented to [facility] on 09/21 with chest pain and dyspnea, with plan for cardiac
catheterization today.
1. Angina versus progression of aortic stenosis
Cardiology on board, input is appreciated
Echo report below. Shows ejection fraction 55 to 60% and moderate aortic stenosis.
Continue aspirin, Brilinta, statin
Patient currently n.p.o.
Cardiac catheterization planned for today
2.CAD status post LAD stent placement in January 2024
Continue aspirin, Brilinta, statin
3.essential hypertension
Continue amlodipine and valsartan
4. hyperlipidemia
Continue Crestor
5. Diabetes mellitus type 2
Hold Janumet, continue Premeal NovoLog, Levemir, SSI, Accu-Cheks.
6. COPD
Continue Ofev 150 mg and Trelegy
7.GERD
Continue omeprazole 40 mg
FULL CODE/SCDs
-------
Echo: Normal LV size and function with no regional wall motion abnormalities.
LVEF is 55-60% by visual estimation.
Mild concentric LVH.
Normal right ventricular size and function.
Moderate aortic stenosis.
Compared to prior from May 02, 2024, no significant change.
Anticipated Discharge: Within 24 hours
Subjective/Interval History
-
Date of Service: September 24, 2024
Patient is a 74-year-old male with PMH of CAD, status post LAD stent on 01/2024, aortic stenosis, diabetes, hypertension, COPD, GERD, hyperlipidemia who presented to [facility] on 09/21 with chest pain and dyspnea. Per family records,
patient stopped taking medications (aspirin) 3 months after stent placement. Cardiology consulted and plan for cath today. Overnight he reports no issues. He states he has no headaches, nausea, vomiting, chest pain, shortness of breath, abdominal
pain, numbness or tingling in extremities. He is accompanied by his son who is translating for him today. Has been n.p.o. overnight
Objective Data
-
Labs:
Laboratory Results
09/24/24
06:50
WBC 12.4 H
Hgb 11.3 L
Hct 35.5 L
Plt Count 263
Sodium 142
Potassium 4.8
Chloride 105
Carbon Dioxide 24
BUN 23 H
Creatinine 0.9
Glucose 138 H
Calcium 9.2
Vital Signs:
Vital Signs
Temp Pulse Resp BP Pulse Ox
97.9 F 74 14 118/58 94
09/24/24 07:30 09/24/24 09:04 09/24/24 07:30 09/24/24 09:04 09/24/24 07:30
I&O
09/23/24 09/24/24 09/25/24
06:59 06:59 06:59
Intake Total 1280 / 1280 630 / 630
Balance 1280 / 1280 630 / 630
Physical Exam
-
General: Well Developed, Well Nourished, No Apparent Distress, Comfortable and Conversant
HEENT: Normocephalic and Atraumatic
Respiratory: Clear to Auscultation
Cardiac: Regular Rhythm and S1/S2
GI: Soft, Nontender and Nondistended
Musculoskeletal: No Clubbing, No Cyanosis and No Edema
Skin: Warm and Dry
Neuro: AO x 3 and No Motor Deficits
Psych: Calm
Data Reviewed
-
Medical Tests (Nuc Med, Echo etc): Report Reviewed by me
Labs: Labs Reviewed by me and Discussed with Physician
[2024-09-24 13:47] LABS: Glucose - Point of Care 128 mg/dl (70-99)
--- NOTE | 2024-09-24 14:04 | CM ---
Patient daughter present when patient seen at bedside. Patient daughter was given OBS/ESCAMILLA form and stated that she would review. Patient daughter confirmed that patient has home health aides for 56 hours a week with Adilia Campbell from [email or web address]
[facility] [phone]. CM updated physicians and if documented that patient needs additional hours Adilia will send it to the representative personal service. . Patient is for cardiac cath today and pending results physician will consider next
steps. CM will continue to follow for discharge planning needs.
Plan; home with home health aides with [facility] [employer] and possibly VN; watch for results from testing
[2024-09-24 14:42] LABS: ACT-LR - POC 289 Seconds (116-155)
[2024-09-24 15:05] LABS: ACT-LR - POC 313 Seconds (116-155)
[2024-09-24 15:53] LABS: ACT-LR - POC > 397 Seconds (116-155)
--- NOTE | 2024-09-24 16:07 | PTCARENOTE ---
Rec'd pt post cath. R radial band is on. No bleeding/hematoma noted w/ positive radial pulse. VSS. Ekg obtained. Tele- SR. No c/o CP/discomfort at this time. Activity restrictions reviewed w/ daughter and son. Translated to pt at bedside. Verbalizes
understanding. Currently in bed; call dez w/in reach.
--- NOTE | 2024-09-24 16:11 | W.DCSUMMARY ---
Addendum entered and electronically signed by Kaykay Pepe MD 09/25/24 18:54:
Read, reviewed, and agree. See same day progress note for additional details. Time spent coordinating care, DC planning, review of DC plan of care with resident, transition of care, review of records in EMR, med rec, consults, notes, d/w
consultants, nursing, family, and CM = 30 minutes
Original Note:
Discharge Summary
Discharge Data
Date of Admission: 09/21/24
Date of Discharge: 09/25/24
Total time spent discharging patient (in min): 30
-
Pending Results: No
Hospital Course
Presenting symptom: Chest pain and dyspnea
Admission diagnosis: Chest pain
Patient is a 74-year-old male with PMH of CAD, status post LAD stent on 01/2024, aortic stenosis, diabetes, hypertension, COPD, GERD, hyperlipidemia who presented to [facility] on 09/21 with chest pain and dyspnea. Per family records,
patient stopped taking medications (aspirin) 3 months after stent placement. No complications over the weekend reported and no ongoing chest pain or shortness of breath. Cardiology was consulted and patient was planned for catheterization on
09/24. Successful cardiac catheterization of 2 high-grade left circumflex lesions.
1. Angina versus progression of aortic stenosis
Continue aspirin, Brilinta 90 mg twice daily, valsartan 320 mg. Dual antiplatelet therapy must be continued for 1 year prior to discontinuation
Cardiac catheterization completed on 09/24
2.CAD status post LAD stent placement in January 2024
Continue aspirin, Brilinta 90 mg twice daily, valsartan 320 mg
3.essential hypertension
Continue amlodipine 5 mg and valsartan 320 mg
4. hyperlipidemia
Continue Crestor
5. Diabetes mellitus type 2
Hold Janumet post catheterization. continue Premeal NovoLog, Levemir, SSI, Accu-Cheks.
Restart Janumet on 09/26 p.m.
6. COPD
Continue Ofev 150 mg and Trelegy
7.GERD
Continue omeprazole 40 mg
Imaging reviewed:
Echo (09/21)
CONCLUSIONS
Normal LV size and function with no regional wall motion abnormalities.
LVEF is 55-60% by visual estimation.
Mild concentric LVH.
Normal right ventricular size and function.
Moderate aortic stenosis.
Compared to prior from May 02, 2024, no significant change.
Chest x-ray (09/21)
IMPRESSION:
Mild cardiomegaly. Stable
No definitive acute disease of the chest noted.
Probable mild chronic pulmonary fibrosis. Stable
Stable pleural-based density in the lateral mid left lung field. Nonurgent chest CT examination recommended. The stability suggests it is likely benign.
Discharge Plan
-
Patient Disposition: Home (Routine Discharge)
Discharge Diagnosis/Procedures: Angioplasty and stent x1 to Left Circumflex and x1 to Obtuse Marginal arteries
Condition: Fair
Diet: Low Cholesterol and Diabetic, Carb Controlled
Activity: As tolerated
Driving Restrictions: No driving for 24 hours
Bathing Restrictions: None
Other Services: Cardiac Rehab
Stand Alone Forms: DC Instructions- Cath/EP Lab
Referrals:
Megan Espinosa NP [Specified Professional Personl] - 10/15/24 11:00 am (Cardiology followup appointment)
Leon George CRNP [Family Provider] -
Additional Discharge Medication Instructions: DO NOT STOP aspirin or brilinta without discussing with Cardiology first
Please take dual antiplatelet therapy for 1 year and follow-up with primary care doctor within 1 to 2 weeks of discharge
HOLD janumet post cath- OK to resume on 09/26 in PM
Prescriptions:
New
acetaminophen 325 mg Tablet
650 mg PO Q4HPRN PRN (Reason: mild pain/ fever>100.5F) 10 Days Qty: 60 0RF
aspirin 81 mg Tablet,Chewable
81 mg PO DAILY 90 Days Qty: 90 3RF
Continued
amlodipine 5 mg tablet
5 mg PO DAILY
omeprazole 40 mg capsule,delayed release(DR/EC)
40 mg PO DAILY
valsartan 320 mg tablet
320 mg PO DAILY
insulin aspart U-100 100 unit/mL (3 mL) insulin pen
22 unit SC MEALS
rosuvastatin 40 mg tablet
40 mg PO HS
Janumet 50-1,000 mg tablet
1 tab PO BID@0800,1700
Trelegy Ellipta 100-62.5-25 mcg blister with device
1 inh INHALATION R DAILY
cholecalciferol (vitamin D3) [Vitamin D3] 25 mcg (1,000 unit) Tablet
25 mcg PO DAILY
Brilinta 90 mg Tablet
90 mg PO BID Qty: 60 0RF
ferrous sulfate 325 mg (65 mg iron) Tablet
325 mg PO DAILY
albuterol sulfate 90 mcg/actuation Hfa Aerosol Inhaler
2 puff INHALATION R Q6HPRN PRN (Reason: sob)
docusate sodium [Stool Softener] 100 mg Tablet
100 mg PO HS
Levemir FlexTouch U100 Insulin 100 unit/mL (3 mL) Insulin Pen
40 unit SC HS
Ofev 150 mg Capsule
150 mg PO Q12H
Discontinued
prednisone 5 mg Tablet
5 mg PO DAILYPRN PRN (Reason: mild pain)
Discharge Orders:
Discharge Patient (As Directed); Ordered 09/25/24
Ordered By: Daily Bay
Care Plan Goals
Care Plan Goals:
Problem: Readiness for enhanced knowledge related to diagnosis and treatment plan
Goal: Understand your diagnosis and treatment plan needs, including medications if applicable.
Instructions: Know your diagnosis, underlying causes and treatment plan options, including medications if applicable. Consult with your health care team to learn about your diagnosis and treatment plan, including medications if applicable.
Discharge Date and Time
Discharge Date/Time: 09/25/24 14:56
Print Language: LAO
[2024-09-24 16:16] LABS: Glucose - Point of Care 118 mg/dl (70-99)
[2024-09-24] MEDS: NOVOLOG FLEXPEN-MODERATE RESISTANCE SC (16:18)
[2024-09-24] MEDS: NOVOLOG FLEXPEN 22 UNITS SC (16:19)
--- NOTE | 2024-09-24 16:24 | ITS.CL.PN ---
Pharmacy Innovation Assistant - Procedure Note
Procedure
Procedure Note:
CARDIAC CATHETERIZATION REPORT
Date of Procedure: 09/24/2024
Referring: Dr. Nestor Jay MD
Indication: unstable angina
PROCEDURE:
1. Left heart catheterization
2. Coronary angiography
3. IVUS of OM3
4. IVUS of LPDA
5. PCI with ADILENE to OM3
6. PCI with ADILENE to LPDA
ACCESS:
6 Malagasy right radial artery (closed with TR band)
CATHETERS:
1. 6 Malagasy JR4
2. 6 Malagasy JL3.5
3. 6 Malagasy XB3.0 guide
CORONARY ANGIOGRAPHY
LM: short with mild disease
LAD: gives rise to two moderate caliber diagonal branches. There is a patent stent in the mid-vessel and mild disease elsewhere
LCx: large dominant vessel giving rise to a moderate caliber OM1/ramus, small OM2, large OM3, large LPL, and moderate caliber LPDA. There is a 90% stenosis in the proximal portion of the OM3 and 80% stenosis in the distal LCx into LPDA
RCA: small and non-dominant without significant disease
HEMODYNAMIC DATA (mmHg)
LV 150/9 (EDP 16)
AO 125/57 (mean 80)
RADIATION:
Radiation dose (mGy): 1720
DAP (cm2.Gy): 116.81
Fluoroscopy time (minutes): 24.9
PCI to OM3 and LPDA
The decision was made to proceed with PCI to the OM3 and LPDA. The left main was engaged with a XB3.0 guide catheter and a Runthrough wire placed in the large branch of the OM3. Initial lesion preparation was performed with a 2.0x12 mm compliant
balloon. IVUS imaging demonstrated a 2.25 mm and 2.75 distal and proximal reference vessel diameter with non-concentric calcification in the lesion. A 2.25x23 mm Xience Skypoint ADILENE was selected and deployed at 12 chyna. The stent balloon was pulled
back slightly and re-inflated at 16 chyna. POT was then performed with a 2.75x8 mm ADILENE taken to to 16 chyna. Final angiographic result was excellent. Repeat IVUS was performed and showed excellent stent expansion, apposition and sizing, and no edge
dissection. The wire was withdrawn and placed in the distal LPDA. Initial lesion preparation was performed with the 2.0x12 mm compliant balloon. IVUS imaging demonstrated a 2.5 mm and 3.25 distal and proximal reference vessel diameter with
non-concentric calcification in the lesion. A 2.5x26 mm Tyrone Sharon ADILENE was selected and deployed at 12 chyna. The stent balloon was pulled back slightly and re-inflated at 16 chyna. There was a small region of underexpansion in the mid-stent. The
stent was then post-dilated from mid stent back to proximal edge to high pressure with a 3.0x12 mm NC balloon taken to 20 chyna, resolving the area of underexpansion. Final angiographic result was excellent. Repeat IVUS was performed and showed
excellent stent expansion, apposition and sizing, and no edge dissection. The wire and guide were removed and a TR band placed. The patient was taken to the cardiac recovery unit in stable condition and family updated.
CONCLUSIONS:
1. Coronary angiography demonstrates a left dominant circulation with high grade stenoses in the OM3 and LPDA and patent stent in the LAD
2. Mildly elevated LV filling pressure (LVEDP 16 mmHg) and 25 mmHg [id number] gradient on pullback consistent with known moderate
3. Successful IVUS-guided PCI of the OM3 with placement of a 2.25x23 Xience Skypoint ADILENE post-dilated to high pressure proximally with a 2.75 mm NC balloon
4. Successful IVUS-guided PCI of the LPDA with placement of a 2.5x26 mm Ross Sharon ADILENE post-dilated to high pressure with a 3.0 mm NC balloon
RECOMMENDATIONS:
1. Expectant management after cardiac catheterization via right radial approach
2. DAPT with ASA/ticag for 1 year, followed by lifetime ASA
3. Aggressive secondary prevention of coronary artery disease
4. Yearly TTE to monitor moderate aortic stenosis
Copy to: Dr. Mike Covarrubias MD (Global Analytics Head); BERKLEY Means (Primary)
Signed: Dylan Grant MD, PhD
--- NOTE | 2024-09-24 20:09 | PTCARENOTE ---
Assumed care of patient at 1845. Pt SR on monitor. VS stable. Dressing to right radial site CDI. Pt with no complaints of pain. Family in room. Instructed to call for any assistance needed.
[2024-09-24] MEDS: LANTUS SC (21:24)
[2024-09-24 21:26] LABS: Glucose - Point of Care 110 mg/dl (70-99)
[2024-09-24] MEDS: CRESTOR 40 MG PO (22:04)
[2024-09-24] MEDS: NON-FORMULARY ITEM 150 MG PO (22:04)
[2024-09-24] MEDS: COLACE 100 MG PO (22:05)
--- NOTE | 2024-09-25 01:23 | PTCARENOTE ---
Pts daughter staying overnight in room with patient.
[2024-09-25] MEDS: TYLENOL 650 MG PO (02:03)
[2024-09-25 04:53] VITALS: BP 124/63
[2024-09-25 05:32] LABS: Hematocrit 35.4 % (39.0-52.0); Hemoglobin 11.1 g/dL (13.0-18.0); Mean Corp Hgb Conc. 31.4 g/dL (33.0-37.0); Mean Corpuscular Hgb 22.7 pg (27.0-31.0); Mean Corpuscular Volume 72.5 fL (80.0-94.0); Mean Platelet Volume 10.3 fL (7.4-10.4); Platelet Count 258 10^3/uL (130-400); Red Blood Cell Count 4.88 10^6/uL (4.70-6.10); Red Cell Dist. Width 18.6 % (11.5-14.5); White Blood Cell Count 13.3 10^3/uL (4.8-10.8)
[2024-09-25 05:51] LABS: Blood Urea Nitrogen 21 mg/dl (9-20); Calcium 9.1 mg/dl (8.4-10.2); Carbon Dioxide 21 mmol/L (22-30); Chloride 104 mmol/L (98-107); Estimated Creatinine Clearance 72 ml/min; Glucose 155 mg/dl (70-99); Potassium 4.9 mmol/L (3.5-5.1); Sodium 143 mmol/L (135-145); eGFR > 60.00
--- NOTE | 2024-09-25 07:52 | W.PN.CD ---
Today's Communication / Plan
-
ambulate, discharge planning
Impression / Plan
-
74M with aortic stenosis, hypertension, hyperlipidemia, IDDM, COPD, and former smoker who was referred to the emergency department after being evaluated in the outpatient cardiology office with complaints of JOYNER and chest pain with inferolateral T
wave inversion. He was found to have high grade stenoses in the 3 and LPDA s/p PCIx2 09/24.
Primary Six Color Press Operator: Dr. Covarrubias
IMPRESSION/PLAN:
Chest pain with dyspnea on exertion
-Differential diagnosis includes: Angina, severe aortic stenosis, and COPD exacerbation
-EKG with inferolateral T wave inversion, troponin <0.012
-Echocardiogram without significant change from prior
-coronary angiography with high grade disease in OM3 and LPDA, s/p DESx2
-post PCI ECG with improvement in TWIs
Coronary artery disease
-Chest pain as above
-PCI to LAD 02/02/2024
-s/p PCI to OM3 and LPDA 09/24/2024
-cont. asa/ticag for 1 year
-aggressive secondary prevention (note LDL is 31 here)
Aortic stenosis moderate
-stable on echo
Hypertension, stable, follow
Dyslipidemia, continue rosuvastatin
Type 2 diabetes mellitus requiring insulin, per primary service
COPD, followed by Dr. Marcus
Echo CONCLUSIONS
Normal LV size and function with no regional wall motion abnormalities.
LVEF is 55-60% by visual estimation.
Mild concentric LVH.
Normal right ventricular size and function.
Moderate aortic stenosis.
Compared to prior from May 02, 2024, no significant change.
Physical Exam
Vital Signs/Labs
Vital Signs
Temp Pulse Resp BP Pulse Ox
36.3 C 67 20 124/63 94
09/25/24 04:30 09/25/24 05:00 09/24/24 23:15 09/25/24 04:53 09/25/24 04:30
09/24/24 09/25/24 09/26/24
06:59 06:59 06:59
Actual Weight 75.296 kg
09/25/24 05:00
09/25/24 05:00
09/21/24
13:50
Tku-Y-Ctsktucxptg Pept 119
Physical Exam
Constitutional: No acute distress and Comfortable
Cardiovascular: Rhythm & rate is regular, Pedal edema is absent, JVD pressure is normal, Systolic murmur absent and Diastolic murmur absent
Respiratory: Respiratory effort normal, Lungs clear to auscul. and Wheeze Absent
Neuro/Psych: AO x 3
Data Reviewed
-
Date of Service: September 25, 2024
Medical Decision Making: Reviewed Test Results
EKG: Tracing Personally Visualized and interpreted and Report Reviewed by me
Echo: Tracing Personally Visualized and interpreted and Report Reviewed by me
Labs: Labs Reviewed by me
[2024-09-25 08:02] VITALS: BP 129/56
[2024-09-25 08:04] LABS: Glucose - Point of Care 175 mg/dl (70-99)
[2024-09-25 08:12] VITALS: BMI 24.9
--- NOTE | 2024-09-25 08:31 | W.PN.HOSP.TC ---
Addendum entered and electronically signed by Kaykay Pepe MD 09/25/24 14:47:
I saw and evaluated the patient independently. I reviewed the resident�s note and agree with findings and plan as documented by Dr. Bay.
GENERAL: well developed, well nourished, male in no apparent distress--limited South Korean speaking--family at bedside
HEENT: NC/AT--no O2 requirements
HEART: regular rate and rhythm, +S1, +S2
LUNGS : clear to auscultation bilaterally
ABDOM: soft, nontender, nondistended, + bowel sounds
EXT: no cyanosis, clubbing, or edema
NEUROLOGIC: grossly intact
chest pain--likely due to Angina--had ADILENE placed in 01/2024 and stopped aspirin 3 months after stent placement versus progression of aortic stenosis--s/p cardiac cath 09/24/24 (had 2 high grade left circumflex lesions stented by cards today
09/24/24)--needs 1 year of uninterrupted DAPT--apprec cards--Echo EF 55-60%--Continue aspirin, Brilinta, statin
CAD status post LAD stent placement in January 2024--Continue aspirin, Brilinta, statin
Essential hypertension--Continue amlodipine and valsartan
HLD--Continue Crestor
Diabetes mellitus type 2--Hold Janumet, continue Premeal NovoLog, Levemir, SSI, Accu-Cheks--can restart Janumet 48 hours post cath (metformin part of Janumet needs to be held)
COPD-- no acute exacerbation--Continue Ofev 150 mg and Trelegy
GERD--Continue omeprazole 40 mg
code status --FULL CODE
DVT proph --SCDs
ok for d/c
Original Note:
Today's Communication/Plan
-
.
Assessment / Plan
Assessment / Plan
Patient is a 74-year-old male with PMH of CAD, status post LAD stent on 01/2024, aortic stenosis, diabetes, hypertension, COPD, GERD, hyperlipidemia who presented to [facility] on 09/21 with chest pain and dyspnea, s/p cardiac
catheterization.
1. Angina versus progression of aortic stenosis
Cardiology on board, input is appreciated
Echo report below. Shows ejection fraction 55 to 60% and moderate aortic stenosis.
Continue aspirin, Brilinta, statin
Successful cardiac catheterization of 2 high-grade left circumflex lesions now stented
2.CAD status post LAD stent placement in January 2024
Continue aspirin, Brilinta, statin for 1 year
3.essential hypertension
Continue amlodipine and valsartan
4. hyperlipidemia
Continue Crestor
5. Diabetes mellitus type 2
Hold Janumet, continue Premeal NovoLog, Levemir, SSI, Accu-Cheks.
Restart Janumet on 09/26 p.m.
6. COPD
Continue Ofev 150 mg and Trelegy
7.GERD
Continue omeprazole 40 mg
FULL CODE/SCDs
-------
Echo: Normal LV size and function with no regional wall motion abnormalities.
LVEF is 55-60% by visual estimation.
Mild concentric LVH.
Normal right ventricular size and function.
Moderate aortic stenosis.
Compared to prior from May 02, 2024, no significant change.
Anticipated Discharge: Today
Subjective/Interval History
-
Date of Service: September 25, 2024
Patient is a 74-year-old male with PMH of CAD, status post LAD stent on 01/2024, aortic stenosis, diabetes, hypertension, COPD, GERD, hyperlipidemia who presented to [facility] on 09/21 with chest pain and dyspnea, s/p cardiac
catheterization. Overnight he reports no acute events other than a short nosebleed that did not recur. He reports no chest pain, shortness of breath, dizziness, nausea, vomiting, abdominal pain or numbness and tingling. He states he is passing
gas and able to urinate, but has not had a bowel movement.
Objective Data
-
Labs:
Laboratory Results
09/25/24
05:00
WBC 13.3 H
Hgb 11.1 L
Hct 35.4 L
Plt Count 258
Sodium 143
Potassium 4.9
Chloride 104
Carbon Dioxide 21 L
BUN 21 H
Creatinine 0.9
Glucose 155 H
Calcium 9.1
Vital Signs:
Vital Signs
Temp Pulse Resp BP Pulse Ox
98.1 F 67 18 124/63 93
09/25/24 07:53 09/25/24 05:00 09/25/24 07:53 09/25/24 04:53 09/25/24 07:53
I&O
09/24/24 09/25/24 09/26/24
06:59 06:59 06:59
Intake Total 630 / 630 565 / 565
Output Total 300 / 300
Balance 630 / 630 265 / 265
Review of Systems
-
History Source: Patient and Family
All other systems: Reviewed and negative
Physical Exam
-
General: Well Developed, Well Nourished, No Apparent Distress, Comfortable and Conversant
HEENT: Normocephalic and Atraumatic
Respiratory: Clear to Auscultation
Cardiac: Regular Rhythm and S1/S2
GI: Soft, Nontender and Nondistended
Musculoskeletal: No Clubbing, No Cyanosis and No Edema
Skin: Warm and Dry
Neuro: AO x 3
Psych: Calm
Data Reviewed
-
Medical Tests (Nuc Med, Echo etc): Report Reviewed by me
Labs: Labs Reviewed by me and Discussed with Physician
Old Records: Reviewed
[2024-09-25] MEDS: SPIRIVA RESPIMAT 2.5 MCG 2 PUFF INH (08:38)
[2024-09-25] MEDS: NOVOLOG FLEXPEN 22 UNITS SC (08:38)
[2024-09-25] MEDS: NOVOLOG FLEXPEN-MODERATE RESISTANCE 1 UNITS SC (08:39)
[2024-09-25] MEDS: SYMBICORT 80/4.5 MCG INHALER 2 PUFF INH (08:39)
[2024-09-25] MEDS: PROTONIX 40 MG PO (08:40)
[2024-09-25] MEDS: BRILINTA 90 MG PO (08:40)
[2024-09-25] MEDS: DIOVAN 320 MG PO (08:40)
[2024-09-25] MEDS: LOW STRENGTH ASPIRIN 81 MG PO (08:40)
[2024-09-25] MEDS: VITAMIN D3 (cholecalciferol) 25 MCG PO (08:40)
[2024-09-25] MEDS: NORVASC 5 MG PO (08:40)
[2024-09-25] MEDS: FEOSOL 325 MG PO (08:41)
[2024-09-25] MEDS: NON-FORMULARY ITEM 150 MG PO (08:41)
--- NOTE | 2024-09-25 09:41 | W.CARD.POSTP ---
Post PCI Follow Up
Procedure
Procedure/Date: 09/24/24: 1. Coronary angiography demonstrates a left dominant circulation with high grade stenoses in the OM3 and LPDA and patent stent in the LAD
2. Mildly elevated LV filling pressure (LVEDP 16 mmHg) and 25 mmHg qulp-gt-[id number] gradient on pullback consistent with known moderate
3. Successful IVUS-guided PCI of the OM3 with placement of a 2.25x23 Xience Skypoint ADILENE post-dilated to high pressure proximally with a 2.75 mm NC balloon
4. Successful IVUS-guided PCI of the LPDA with placement of a 2.5x26 mm Tyrone Noble ADILENE post-dilated to high pressure with a 3.0 mm NC balloon
Subjective: denies cp, sob
Site
Site: Radial: Right and No ht/bleeding, distal pulses palpable
Tele / EKG
SR no sig ectopy
Labs
09/25/24 05:00
09/25/24 05:00
09/21/24
13:50
Wcn-A-Syufczqasgv Pept 119
DAPT Medication
DAPT Medication: Aspirin 81mg daily and Tricagrelor 90 mg BID
Case Management checking bhandari: No
Plan
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
reinforced imprortance of DAPT (ASA/Brilinta)
[2024-09-25 09:50] LABS: HDL Cholesterol 28 mg/dl; LDL Cholesterol, Calculated 77 mg/dl; Total Cholesterol 140 mg/dl (50-199); Triglyceride 176 mg/dl (10-149); Very Low Density Lipoprotein 35 mg/dl (0-30)
--- NOTE | 2024-09-25 10:51 | PTCARENOTE ---
received patient this am sitting up in chair waiting for breakfast. son in law at bedside able to interpret for me. patient stated that he has no pain, no CP and no SOB this am. right radial dsg. D/I, distal pulse palpable. patient is asking if he
will be discharged to home today. waiting for doctor rounds. monitor shows NSR, VSS.
[2024-09-25 12:58] VITALS: BP 137/60
[2024-09-25] MEDS: NOVOLOG FLEXPEN SC (14:27)
[2024-09-25] MEDS: NOVOLOG FLEXPEN-MODERATE RESISTANCE SC (14:28)
--- NOTE | 2024-09-25 14:49 | PTCARENOTE ---
D/C instructions given to daughter who then in turn talked to her father in their language, both verbalizes understanding. INT x 2 D/C'd, telemetry d/C'd, personal belongings packed and sent home with patient. D/c to home via wc accompanied by staff.
== END 2024-09-25 14:56 | disposition home or self-care (01) | DRG 322 ==
LOC: IVU 08:44
PROVIDERS: Emergency Medicine; Internal Medicine; Nurse Practitioner; Physician Assistant Medical; Student in an Organized Health Care Education/Training Program; ADMITTING PHYSICIAN Hospitalist; ATTENDING PHYSICIAN Internal Medicine; EMERGENCY PHYSICIAN Emergency Medicine; FAMILY PHYSICIAN Nurse Practitioner
PROC: 4A023N7 Measurement of Cardiac Sampling and Pressure, Left Heart, Percutaneous Approach (ICD-10-PCS; 2024-09-24)
PROC: B241ZZ3 Ultrasonography of Multiple Coronary Arteries, Intravascular (ICD-10-PCS; 2024-09-24)
PROC: B2151ZZ Fluoroscopy of Left Heart using Low Osmolar Contrast (ICD-10-PCS; 2024-09-24)
PROC: B2111ZZ Fluoroscopy of Multiple Coronary Arteries using Low Osmolar Contrast (ICD-10-PCS; 2024-09-24)
PROC: 027135Z Dilation of Coronary Artery, Two Arteries with Two Drug-eluting Intraluminal Devices, Percutaneous Approach (ICD-10-PCS; 2024-09-24)
DX: I25.110 Atherosclerotic heart disease of native coronary artery with unstable angina pectoris (principal); Z87.891 Personal history of nicotine dependence; I10 Essential (primary) hypertension; E78.5 Hyperlipidemia, unspecified; E11.9 Type 2 diabetes mellitus without complications; J44.9 Chronic obstructive pulmonary disease, unspecified; K21.9 Gastro-esophageal reflux disease without esophagitis; Z79.02 Long term (current) use of antithrombotics/antiplatelets
CPT/HCPCS: 71046; 80048; 80053; 80061; 82962; 83036; 83880; 84484; 85025; 85027; 85347; 92978; 93005; 93306; 93458; 94640; 97162; 99285; C1725; C1753; C1874; C1894; C9600; C9601; Q9967

== ENCOUNTER → 2025-05-16 13:31 | Outpatient (REF) | payer OTHER, SELFPAY | LOC: RCS 13:31 | PROVIDERS: ATTENDING PHYSICIAN Internal Medicine; FAMILY PHYSICIAN Nurse Practitioner | DX: I25.10 Atherosclerotic heart disease of native coronary artery without angina pectoris (principal); I35.0 Nonrheumatic aortic (valve) stenosis | CPT/HCPCS: 93306 ==

== ENCOUNTER → 2025-05-27 11:10 | Outpatient (REF) | payer OTHER, SELFPAY | LOC: RAD 11:10 | PROVIDERS: ATTENDING PHYSICIAN Internal Medicine Cardiovascular Disease; FAMILY PHYSICIAN Nurse Practitioner | DX: I35.0 Nonrheumatic aortic (valve) stenosis (principal) | CPT/HCPCS: 74174; 75572; Q9967 ==

== ENCOUNTER 2025-06-03 06:42 | Day surgery (SDC) | payer OTHER, SELFPAY ==
[2025-05-28 12:52] VITALS: BMI 27.9
[2025-05-28 13:44] LABS: ALT (SGPT) 34 U/L (0-50); AST (SGOT) 34 U/L (17-59); Albumin 4.2 g/dl (3.5-5.0); Alkaline Phosphatase 87 U/L (38-126); Blood Urea Nitrogen 18 mg/dl (9-20); Calcium 9.0 mg/dl (8.4-10.2); Carbon Dioxide 26 mmol/L (22-30); Chloride 104 mmol/L (98-107); Estimated Creatinine Clearance 47 ml/min; Glucose 257 mg/dl (70-99); Potassium 5.6 mmol/L (3.5-5.1); Sodium 138 mmol/L (135-145); Total Protein 8.8 g/dl (6.3-8.2); eGFR > 60.00
[2025-05-28 14:44] LABS: Iron 391 ug/dl (49-181)
[2025-05-28 14:53] LABS: Total Iron Binding Capacity 404 ug/dl (261-462)
[2025-05-28 15:19] LABS: Ferritin 14.0 ng/ml (17.9-464.0)
[2025-05-28 15:33] LABS: Vitamin B12 319 pg/ml (239-931)
[2025-06-03] VITALS (14 sets, daily range): BP systolic 115–143; BP diastolic 46–86; BMI 27.8
[2025-06-03 07:23] LABS: Glucose - Point of Care 153 mg/dl (70-99)
[2025-06-03] MEDS: BRILINTA 90 MG PO (07:31)
[2025-06-03] MEDS: LOW STRENGTH ASPIRIN 81 MG PO (07:32)
--- NOTE | 2025-06-03 08:56 | ITS.CL.CATH ---
Parachute Rigger - Catheterization
Cardiac Catheterization
Procedure Report:
CARDIAC CATHETERIZATION REPORT
Date of Procedure: 06/03/2025
Referring: Mike Covarrubias M.D.
Indication: Low-flow, low gradient severe aortic valve stenosis.
PROCEDURE:
1. Right heart catheterization.
2. Coronary angiography.
3. Left heart catheterization.
A total of 20 minutes of procedural/moderate sedation was utilized. An independent medical technologist was present to assist with and help manage the patient's level of consciousness and physiologic status.
ACCESS:
1. 6 Swiss right common femoral artery using a modified Seldinger technique with a micropuncture kit under ultrasound guidance.
2. 5 Swiss right antecubital vein with a previously placed IV.
CATHETERS:
1. 5 Swiss balloon wedge.
2. 5 Swiss JR4.
3. 5 Swiss JL 4.
HEMODYNAMIC DATA
Weight (kg): 73.5
AO (s/d/x, mmHg): 103/47/69
LV (s/x, mmHg): 143/15
PCWP (a/v/x, mmHg): /
PA (s/d/x, mmHg): 39/20/26
RV (s/x, mmHg): 39/14
RA (a/v/x, mmHg): /
SVC SvO2 (%): 59.9
IVC SvO2 (%): Not obtained.
RA SvO2 (%): Not obtained.
RV SvO2 (%): Not obtained.
PA SvO2 (%): 50.1
SaO2 (%): 90.8
Hbg (g/dL): 9.5
KAMI
CO (L/min): 4.01
CI (L/min/m2): 2.24
Thermodilution
CO (L/min): Not performed.
CI (L/min/m2): Not performed.
TPG (mmHg): 11
PVR (Ogden Units): 2.74
SVR (dynes*seconds*cm^-5): 1097
AVO2 Diff (Volume %): 5.26
AV gradient (x, mmHg): 28.4
AV area (cm2): 0.79
MV gradient (x, mmHg): Not obtained.
MV area (cm2): Not obtained.
LEFT VENTRICULOGRAPHY: Not performed.
AORTOGRAPHY: Not performed.
CORONARY ANGIOGRAPHY
Dominance: Left.
Left Main: Normal size, bifurcating vessel. There is no coronary artery disease.
LAD: Normal size vessel giving rise to 1 significant diagonal. There is a long, 30-40% lesion in the proximal vessel. There is a patent stent in the mid vessel with 10% ISR.
Ramus: Congenitally absent.
Circumflex: Large size, dominant vessel giving rise to 3 obtuse marginals before terminating as an LPDA. There is a patent stent in the proximal margin of OM 3 without significant ISR. There is a patent stent in the distal circumflex as it
becomes the LPDA without evidence of ISR.
RCA: Small size, nondominant vessel. There is no coronary artery disease.
INTERVENTIONS
None.
Closure Device: Manual pressure for the right common femoral artery and right antecubital vein.
Radiation dose (mGy): 264
DAP (cm2.Gy): 17.4
Fluoroscopy time (minutes): 6.2
CONCLUSIONS:
1. Left dominant circulation with a long, 30-40% lesion in the proximal LAD, patent stent in the mid LAD with 10% ISR, a patent stent in the proximal margin of OM 3 and a patent stent in the distal circumflex as it becomes the LPDA, both of which
without significant ISR.
2. Mildly elevated filling pressures (LVEDP = 15 mmHg, PCWP = 15 mmHg at 73.5 kg).
3. Severe, low-flow, low gradient aortic valve stenosis.
RECOMMENDATIONS:
1. Expectant management after cardiac catheterization via right common femoral approach.
2. Limited weight bearing for one week.
3. Continue dual antiplatelet therapy for at least 12 months (September 2025) given recent PCI.
4. Continue TAVR workup for low-flow, low gradient aortic valve stenosis.
Copy to: Mike Covarrubias M.D., Kaykay Balbuena M.D., BERKLEY Means
Andreas Mccauley DO, FACC, FACP
[2025-06-03 10:06] LABS: Glucose - Point of Care 149 mg/dl (70-99)
[2025-06-03 11:08] LABS: Glucose - Point of Care 146 mg/dl (70-99)
== END 2025-06-03 13:30 | disposition home or self-care (01) ==
LOC: CATH 06:42
PROVIDERS: ATTENDING PHYSICIAN Internal Medicine Cardiovascular Disease; FAMILY PHYSICIAN Nurse Practitioner; OTHER PHYSICIAN Internal Medicine
DX: I25.10 Atherosclerotic heart disease of native coronary artery without angina pectoris (principal); I35.0 Nonrheumatic aortic (valve) stenosis; E11.9 Type 2 diabetes mellitus without complications; E78.5 Hyperlipidemia, unspecified; I10 Essential (primary) hypertension; J44.9 Chronic obstructive pulmonary disease, unspecified; Z79.82 Long term (current) use of aspirin; J84.10 Pulmonary fibrosis, unspecified; R59.0 Localized enlarged lymph nodes; Z79.899 Other long term (current) drug therapy; Z79.02 Long term (current) use of antithrombotics/antiplatelets; Z95.5 Presence of coronary angioplasty implant and graft; Z82.49 Family history of ischemic heart disease and other diseases of the circulatory system; Z83.3 Family history of diabetes mellitus; Z79.4 Long term (current) use of insulin; Z87.891 Personal history of nicotine dependence
CPT/HCPCS: 99152; 36415; 80053; 82607; 82728; 82962; 83540; 83550; 93005; 93460; C1769; C1894; Q9967

== ENCOUNTER 2025-08-08 08:57 | Inpatient (IN) | payer OTHER, SELFPAY ==
[2025-07-31 08:44] VITALS: BMI 26.9
[2025-07-31 09:36] LABS: Hematocrit 32.1 % (39.0-52.0); Hemoglobin 10.1 g/dL (13.0-18.0); Mean Corp Hgb Conc. 31.5 g/dL (33.0-37.0); Mean Corpuscular Volume 82.5 fL (80.0-94.0); Nucleated Red Blood Cells % 0 % (-); Platelet Count 284 10^3/uL (130-400); Red Cell Dist. Width 17.4 % (11.5-14.5)
[2025-07-31 09:46] LABS: INR 0.91; PT 12.7 Sec (11.4-14.6)
[2025-07-31 10:00] LABS: Glycohemoglobin (HgbA1c) 5.9 % (4.0-5.6)
[2025-07-31 10:09] LABS: ALT (SGPT) 21 U/L (0-50); AST (SGOT) 29 U/L (17-59); Albumin 4.1 g/dl (3.5-5.0); Alkaline Phosphatase 72 U/L (38-126); Blood Urea Nitrogen 11 mg/dl (9-20); Calcium 9.1 mg/dl (8.4-10.2); Carbon Dioxide 22 mmol/L (22-30); Chloride 106 mmol/L (98-107); Estimated Creatinine Clearance 73 ml/min; Glucose 179 mg/dl (70-99); Potassium 4.6 mmol/L (3.5-5.1); Sodium 138 mmol/L (135-145); Total Protein 8.4 g/dl (6.3-8.2); eGFR > 60.00
[2025-07-31 10:31] LABS: Urine Character Clear (Clear)
[2025-07-31 11:01] LABS: Urine Squamous Cell 0-2 /LPF (Few); Urine White Cell 0-2 /HPF (0-5)
--- NOTE | 2025-07-31 11:36 | HPS.HSE ---
Family Physician
-
Family Physician: BERKLEY Means
Cardiology: Mike Covarrubias
Chief Complaint
-
JOYNER, fatigue. Pre-operative H&P
History of Present Illness
Mr. Mitchell is a 74yo Korean speaking male with known history of aortic stenosis. Past medical history is significant for CAD with previous PCI in 2023, HTN, HLD, COPD, interstitial lung disease�and diabetes. Per his daughter he has had increasing
JOYNER, fatigue and weakness over recent months. He follows with [facility] for his pulmonary issues and most recent PFTs were done 09/2024. He is followed by Dr. Covarrubias for his CAD and . His most recent
echocardiogram on 05/16/2025 showed LVEF of 60-65%, advance now to severe with PG/M/26, ABBY: 0.9, no AI documented. Mild MR noted as well. He denies chest pain, palpitations, orthopnea or PND. He underwent cardiac cath on 06/[address] Mccauley
and his invasive gradient was 28.4 with ABBY of 0.79. LAD has�a long, 30-40% lesion in the proximal vessel. There is a patent stent in the mid vessel with 10% ISR. Mildly elevated filling pressures (LVEDP = 15 mmHg, PCWP = 15 mmHg at 73.5 kg).
Severe, low-flow, low gradient aortic valve stenosis noted. His case was reviewed by the structural heart team and TAVR was felt to be the appropriate treamtent.
Medical History
Past Medical History
Past Medical History: Reports CAD, GERD, HTN, NIDDM and Other (Pulmonary fibrosis, iron def. anemia, mediastinal lymphadenopathy)
Past Surgical History: Reports Cardiac (PCI with stent to LAD 09/21/2024)
Social History
Tobacco: Former Smoker
Alcohol: None
Drug: None
Living: With Family
Employment: Retired
Family History
Family History: Not pertinent
Allergies / Home Medications
Allergies reflects when Allergies were last updated in [employer].
Home Medications with original date entered in [employer]
Allergy/Medication List:
Allergies:
NKDA
Medications:
Albuterol Sulfate HFA 108 (90 Base) MCG/ACT Aerosol Solution 1 puff as needed Inhalation every 4 hrs
amLODIPine Besylate 10 MG Tablet 1 tablet Orally Once a day
Aspirin 81(Aspirin) 81 MG Tablet Delayed Release 1 tablet Orally Once a day
Brilinta(Ticagrelor) 90 MG Tablet 1 tablet Orally Twice a day
Ezetimibe 10 MG Tablet 1 tablet Orally Once a day
Farxiga(Dapagliflozin Propanediol) 10 MG Tablet 1 tablet Orally Once a day
Ferrous Sulfate 325 (65 Fe) MG Tablet Delayed Release 1 tablet Orally Three times a Week
Gas-X
Insulin Aspart Prot & Aspart (70-30) 100 UNIT/ML 22 units
(SITagliptin Phos-metFORMIN HCl) 50-1000 MG Tablet 1 tablet with meals Orally Twice a day
MiraLax(Polyethylene Glycol 3350) 17 GM/SCOOP Powder 1 gram mixed with 8 ounces of fluid Orally Once a day
NovoLOG FlexPen(Insulin Aspart) 100 UNIT/ML Solution Pen-injector as directed Subcutaneous , 40 units
Ofev(Nintedanib Esylate) 150 MG Capsule 1 capsule Orally every 12 hrs
Omeprazole 40 MG Capsule Delayed Release 1 capsule 30 minutes before morning meal Orally Once a day
PredniSONE 5 MG Tablet 1 tablet Orally Once a day , Notes to Pharmacist: PRN
Rosuvastatin Calcium 40 MG Tablet 1 tablet Orally Once a day
Trelegy Ellipta(Qvuucmigvxm-Tbiepqbcg-Yvogqh) 100-62.5-25 MCG/ACT Aerosol Powder Breath Activated 1 puff Inhalation Once a day
Valsartan 160 MG Tablet 1 tablet Orally Once a day
Vitamin D3 25 MCG (1000 UT) Capsule 1 capsule Orally Once a day
Ketoconazole 2% BID to affected area
Hydrocortisone 1% BID to affected area
Oxygen 2L/NC QHS
Review of Systems
-
History Source: Patient and Family
Constitutional: Reports Fatigue
EENT: Reports No Symptoms
Respiratory: Reports Trouble Breathing and Other (chronic pulmonary disease, O2 at night)
Cardiac: Denies Chest Pain, Palpitations or Syncope
Abdomen/GI: Reports Abdominal Pain (relieved with bowel movement) and Constipated; Denies Nausea or Vomiting
: Reports Other (Burning)
Musculoskeletal: Reports No Symptoms and Edema (occasional irasema. LE)
Skin: Reports Rash (Head and face- using creams)
Neurological: Reports No Symptoms; Denies Dizzy, Headache or Weakness
Endocrine: Reports No Symptoms
Hematologic/Lymphatic: Reports No Symptoms
Psych: Reports No Symptoms and Calm
Physical Exam
Physical Exam
General: Well Developed, Well Nourished, No Apparent Distress and Comfortable
HEENT: NormoCephalic, Moist mucous membranes and PERRLA
Respiratory: Clear, Non Labored Respirations and Decreased Breath Sounds (bilateral bases); No Wheezes, Rales or Rhonchi
Cardiac: S1/S2, Regular Rhythm and Murmur (Grade II/ LESTER)
Breast: Deferred by me
GI: Soft, Non Tender, Non Distended and Normal Bowel Sounds
Rectal: Deferred by Provider
Genito-urinary: Deferred by me
Musculoskeletal: No Clubbing, No Cyanosis and No Edema (trace bilateral LE)
Skin: Warm and Dry
Neuro: Awake, Alert, Oriented and Nonfocal/grossly intact
Psych: Calm
Laboratory Results
-
07/31/25 09:08
07/31/25 09:08
Laboratory Results
PT 12.7 Sec (11.4-14.6) 07/31/25 09:08
INR 0.91 07/31/25 09:08
Total Bilirubin 0.5 mg/dl (0.2-1.3) 07/31/25 09:08
AST 29 U/L (17-59) 07/31/25 09:08
ALT 21 U/L (0-50) 07/31/25 09:08
Alkaline Phosphatase 72 U/L (38-126) 07/31/25 09:08
Data Reviewed
-
Diagnostic Radiology: Report Reviewed by me (CXR: Findings are highly suggestive of interstitial fibrosis. )
CT Scan: Report Reviewed by me and Discussed with Physician
Medical Tests (Nuc Med, Echo, EKG etc): Report Reviewed by me and Discussed with Family
Lab Data: Labs Reviewed by me
Old Records: Reviewed (consult notes)
Impression/Plan
-
IMPRESSION:
Low flow, low gradient Aortic Stenosis
PLAN:
-TF TAVR - 26mmS3 via transfemerol approach
-Continue ASA/Brilinta
-POD#1/#30 echocardiogram
-Cardiac rehab consult
-Pre-dental antibiotic prophylaxis for life (reviewed with family at this visit)
--- NOTE | 2025-07-31 17:19 | CM ---
spoke to pt and daughter, Clotilde, in PAT's. pt speaks Armenian and daughter translated for him. we discussed preop TAVR teaching including driving and lifting restrictions. he is prev indep, lives with his daughter in a 2 story home with a first
floor set up and no steps to enter. he has a wheelchair, cane and a walker he uses. he has the TAVR educ book, soap and instructions. he is agreeable toa f/u visit form the ct transitional care nurses after dc. cm role explained and all questions
answered.
[2025-08-08] VITALS (35 sets, daily range): BP systolic 104–191; BP diastolic 42–69
[2025-08-08 10:00] LABS: Glucose - Point of Care 146 mg/dl (70-99)
[2025-08-08] MEDS: ANCEF 10 IV (11:47)
[2025-08-08 12:28] LABS: ACT-LR - POC 302 Seconds (116-155)
[2025-08-08 13:31] LABS: Glucose - Point of Care 161 mg/dl (70-99)
--- NOTE | 2025-08-08 14:02 | W.PN.CT.SURG ---
CT Surgery Operative Note
-
OPERATIVE REPORT
Preoperative Diagnosis: Severe aortic valve stenosis, symptomatic
Postoperative Diagnosis: Same
Procedure(s) Performed: Right trans femoral TAVR with a 23+1 cc Mckinley TAVR valve
Date of Procedure: 08/08/2025
Comorbidities:
1. Severe aortic stenosis, symptomatic
2. Severe interstitial pulmonary fibrosis
3. Coronary disease
4. Hypertension
5. Type 2 diabetes
6. GERD
Cardiac Surgeon: Aidan Coronado MD, MS
Auto Air Conditioning Mechanic: Jean Claude Grant MD
Anesthesia: Conscious Sedation and Local Analgesia
EBL: 100cc
Products: none
Implant: 23 mm +1 Mckinley CLARE TAVR valve, SN: [id number]
Indication(s) for Procedures: 75-year-old male with symptomatic severe aortic stenosis. Likely classified as low-flow low gradient. He also has severe interstitial pulmonary fibrosis. CT-TAVR protocol revealed acceptable anatomy for TAVR access
and implantation.
Start time: 1148hrs
Deployment time: 1220hrs
End time: 1242hrs
Radiation Dose (mGy): 289
DAP (cm2.Gy): 25.2
Fluoroscopy time (minutes): 10.9
Contrast volume (ml): 67
TAVR gradient (mmHg): 4mmHg
Heparin Dose: 8000units
Protamine Dose: 40mg
Final Valve Positionin/10
LVEPD: 24mmHG
Findings: Preoperative LVEF was 55% and was 55% following TAVR without inotropic support. Function was overall normal without regional wall motion abnormalities or dyskinesia. The aortic valve was well seated without detectable PVL and mean gradient
across the new valve was 4mmHg. After short period of ventricular pacing for deployment of the valve, he had a new left bundle branch block but returned to sinus while on the slab lifting supervisor table. Of note during the initial deployment of the valve the
balloon ruptured partially and so the valve is under deployed and underexpanded. New device was prepped using the same amount of volume and insufflator and under a second pacing run we insufflated and had good effect with full expansion of the TAVR
valve. Ultimately, there was successful placement of 23 mm +1 TAVR valve without acute complications.
Access:
1. Device -right common femoral artery, perclose x 2
2. Pigtail -left common femoral artery [+ 6Fr angioseal]
3. Transvenous Pacer -left common femoral vein
Description of Procedure: The patient was taken to the slab lifting supervisor. Their identity and procedure to be performed were verified and they were positioned supine on the slab lifting supervisor table. Induction via conscious sedation. The patient was then prepped and
draped from chin to thigh in a sterile fashion. A preoperative time-out was performed with all members of the team present. Arterial and venous access was performed using fluoroscopy and ultrasound guidance with micropuncture and Seldinger
technique. Two perclose devices were used on the device side followed by access to the aorta with a stiff wire to facilitate E-sheath placement. Heparin was given. A stiff straight wire and AL-1 catheter was used to cross the aortic valve. An LVEDP
was measured. The stiff wire was exchanged for an extra stiff coiled tip wire. The valve was prepped and mounted on to the device carrier. An ACT of >250 was achieved. We verified x 3 that the valve was mounted in the correct orientation with the
skirt of the valve directed toward the tip of the device carrier. We advanced the device into the descending thoracic aorta where the valve was them mounted onto the balloon under fluoroscopy. The device was flexed and advanced over the arch into
the root and positioned across the aortic valve. Contrast fluoroscopy was used to visualize the prosthesis across the valve and to guide positioning. A pigtail catheter in the RCC as used as a guide. We aimed to have the bottom of the device marker
at the annular hinge point. The device sheath was pulled back. We performed a quick pre-deployment time out. The pacer was turned on and had capture. Blood pressure fell accordingly, angiography was done to verify the intended final placement and
the valve was deployed with 5 seconds of rapid pacing to nominal volume. The balloon was found to have ruptured and the valve is under deployed. So this point we allowed the patient to regain his normal rhythm and we prepped another device and
balloon. We advanced over the existing wire across the TAVR valve into the LV and again under rapid pacing at 100 bpm we had this time full deployment and good expansion of the TAVR valve. The balloon was deflated and the pacer was turned off. We
had recovery of vitals. The device carrier was unflexed and positioned back in the descending thoracic aorta. A transthoracic echocardiogram was performed. The device was removed from the E-Sheath maintaining wire access followed by removal of the
E-sheath as we cinched down the perclose devices. There was acceptable hemostasis. The pigtail was withdrawn into the descending/abdominal and completion aortogram with runoff run-off angiography was performed. There was no stenosis or dissection of
bilateral iliofemoral systems. There was acceptable hemostasis of bilateral groins and manual pressure was held following wire removal. Low dose protamine was administered after checking another ACT.
All instrument, sponge, and needle counts were confirmed to be correct x 2 at the end of the operation. The patient was transferred to the cardiac intensive care unit in stable condition.
I, Dr. Aidan Coronado, was present, scrubbed for, and performed all critical elements of this procedure.
Aidan Coronado MD
Cardiothoracic Surgeon
[facility]
This operative dictation was created using the [employer] dictation system. Please excuse any grammatical, typographical, or 'sound alike' errors
[2025-08-08] MEDS: ANCEF IV (14:06)
[2025-08-08] MEDS: NOVOLOG MIX 70/30 FLEXPEN SC ×2 (14:06→22:36)
--- NOTE | 2025-08-08 14:09 | ITS.CL.PN ---
Document Control Supervisor - Procedure Note
Procedure
Procedure Note:
TRANSCATHETER AORTIC VALVE REPLACEMENT REPORT
Date of Procedure: 08/08/2025
Referring: Dr. Mike Covarrubias MD
Indication: symptomatic severe aortic valve stenosis
Operators: Dylan Grant MD, PhD (interventional cardiology); Dr. Aidan Coronado MD, PhD (CT surgery)
Anesthesia: conscious sedation provided by the anesthesia staff
PROCEDURE: transfemoral, transcatheter aortic valve replacement with an Mckinley Mirian 3 Ultra Resilia 23 mm transcatheter aortic valve
ACCESS:
1. 6F left femoral vein (closure: manual hemostasis) - Ultrasound was utilized for vascular access. The vessel was visualized under ultrasound and noted to be patent. An image of the vessel was stored permanently in the patient's medical record.
Under direct ultrasound guidance, vascular access was obtained using a modified Seldinger technique and a 6 Faroese sheath was placed.
2. 6F left common femoral artery (closure: Angioseal) - Ultrasound was utilized for vascular access. The vessel was visualized under ultrasound and noted to be patent. An image of the vessel was stored permanently in the patient's medical record.
Under direct ultrasound guidance, vascular access was obtained using a modified Seldinger technique and a 6 Faroese sheath was placed.
3. 14 F right common femoral artery (closure: Perclose x2) - Ultrasound was utilized for vascular access. The vessel was visualized under ultrasound and noted to be patent. An image of the vessel was stored permanently in the patient's medical
record. Under direct ultrasound guidance, vascular access was obtained using a modified Seldinger technique and a 8 Faroese sheath was placed.
HEMODYNAMIC DATA
LVEDP 24 mmHg
PROCEDURE NARRATIVE:
The patient was prepped and draped in standard sterile fashion. Conscious sedation was provided by the anesthesia staff. 6F left femoral vein and left common femoral artery access was obtained with ultrasound guidance using micropuncture technique
with verification of appropriate arteriotomy location via hand injection angiography. A temporary venous pacing wire was advanced via the left femoral vein to the right ventricle under fluoroscopic guidance with appropriate capture verified. A 5F
pigtail catheter was advanced via the left common femoral artery and seated in the right coronary cusp. Angiography was performed to verify the co-planar angle.
8F right common femoral artery access was obtained with ultrasound guidance using micropuncture technique with verification of appropriate arteriotomy location via hand injection angiography. The arteriotomy was preclosed with two Perclose sutures
followed by replacement of the 8F sheath. Using an AL1 catheter, an Amplatz Extrastiff wire was placed in the descending thoracic aorta. The 8F sheath was removed and the 14 F Mckinley E-sheath was inserted over the Extrastiff wire and into the
descending aorta. Heparin 6000 units was given. The AL1 catheter was re-advanced through the E-sheath to the level of the ascending aorta. The Extrastiff wire was exchanged for a soft tipped straight wire which was used to cross the aortic valve and
deposit the AL1 in the LV apex. A J-wire was used to exchange the AL1 for a pigtail catheter in the LV and LVEDP was measured. An Amplatz Extrastiff wire with curved proximal end was advanced through the pigtail catheter and seated in the LV apex.
ACT was checked and confirmed to be >300 seconds.
The valve was brought to the table with orientation and deployment contrast volume verified (18 mL, 1 cc above nominal). The valve was advanced over the Extrastiff wire and into the descending aorta. The balloon was withdrawn, and the valve was
mounted on the balloon. The valve was advanced over the aortic arch and into the aortic valve annulus. The pusher device was withdrawn. Low volume aortography confirmed valve positioning. The valve was deployed during rapid ventricular pacing.
During inflation, the balloon was noted to rupture. Fortunately, the valve was largely expanded at this point and remained stable in the annulus. The balloon was walked out over the wire and a new delivery system advanced with the balloon inflated
with 1 extra cc of volume with full expansion and no rupture. The valve was noted to foreshorten and fully expand. The balloon was walked back to the descending aorta while leaving the wire in place. The patient was resuscitated by anesthesia with
recovery of adequate blood pressure. Telemetry demonstrating new left bundle branch block with sinus rhythm. Aortography demonstrated good valve positioning, adequate coronary filling, and trace aortic valve insufficiency due to the wire which was
subsequently removed. Echocardiography confirmed no aortic insufficiency. Mean valve gradient was 4 mmHg. The valve deployment system was removed.
The Mckinley E sheath was removed, and hemostasis obtained with the two Perclose sutures. Protamine 30 mg was given. Aortoiliac angiography demonstrated no evidence of iliofemoral dissection/perforation and good runoff below the common femoral artery
bilaterally. The pacemaker and the pigtail catheter were removed. The left femoral artery sheath was removed using a 6F Angioseal. The left femoral venous sheath was removed with manual pressure.
CONCLUSION: successful placement of an Mckinley Mirian 3 Ultra Resilia 23 mm transcatheter aortic valve via right transfemoral approach with no acute complications
Copy to: Dr. Mike Covarrubias MD (preparole counseling aide); Leon George NP (PCP)
Signed: Dylan Grant MD, PhD
--- NOTE | 2025-08-08 14:49 | CM ---
Chart reviewed. Patient is in OR. Patient is independent of ADLS, speaks French, lives with his daughter in a 2 STH, 1st floor set up, ambulates with a SPC, RW and also has a wheelchair. Plan is for the patient to return home with CT
Transitional RN.
[2025-08-08 17:14] LABS: Glucose - Point of Care 120 mg/dl (70-99)
--- NOTE | 2025-08-08 17:18 | PTCARENOTE ---
Received patient from PACU at 1430 after TAVR. Patient speaks divehi, his daughter is at the bedside to translate. Oriented to room and plan of care, neuro status within normal limits. SR/SB on the monitor with BBB. Bilateral groin dressings in
place, with palpable pedal pulses. Patient maintained flat bedrest x 4 hours. Has a scant amount of serosanguineous drainage on the right groin dressing and a moderate amount of serosanguineous drainage on the left groin dressing. His daughter is
ordering him dinner now, call garces in reach, she plans to spend the night with her father.
[2025-08-08] MEDS: NOVOLOG MIX 70/30 FLEXPEN 22 UNITS SC (18:22)
[2025-08-08] MEDS: ANCEF 5 IV (19:52)
[2025-08-08 22:30] LABS: Glucose - Point of Care 207 mg/dl (70-99)
[2025-08-08] MEDS: CRESTOR 40 MG PO (22:30)
[2025-08-08] MEDS: LANTUS 0.4 UNITS SC (22:30)
[2025-08-08] MEDS: NITROSTAT (SUBLINGUAL) 0.4 MG SL (23:17)
[2025-08-08] MEDS: DIOVAN 80 MG PO (23:25)
[2025-08-09] VITALS (15 sets, daily range): BP systolic 102–161; BP diastolic 35–60; PULSE 92; O2SAT 95; BMI 25.4
[2025-08-09] MEDS: LASIX 40 MG IV (00:02)
[2025-08-09] MEDS: TYLENOL 650 MG PO ×2 (00:02→09:15)
--- NOTE | 2025-08-09 01:59 | W.PN.UPDATE ---
Update Note
Progress Note Update
late note:
-at 11:15 came in urgently to eval pt for CP and SOB after walking to the bathroom. Pt's daughter, Iveth, is at bedside and translated. Pt initially had 4-5/10 chest pressure, which decreased spontaneously to 2/10 at the time I saw the pt. It
wasn't reproducible with palpation or deep breathing His BP was 160/52, hr 81 snd, pOx 98% on 1L. Pt appeared mildly uncomfortable but wasn't in any distress. ECG with resolved LBBB, LVH, ST elevation in V1-V3 with no reciprocal changes and no
changes from his preop ECG. Reviewed cath 06/03/25. Gave 1 sl Nitro for better BP control and CP. Pt appeared volume-overloaded with JVD and b/l crackles at the bases. LVEDP was 24 during TAVR procedure. He also has pulmonary fibrosis and ILD. He is
on 1L O2 at home. He has hx of CAD with prior stents. CP decreased to 1/10 after sl Nitro. Pt was straight cath for 1000cc as well and felt better. Gave Valsartan 80 for HTN and Tylenol/Karin for residual discomfort.
-Reviewed ECG and sxs with Dr. Balbuena. Gave 40 iv Lasix and placed Stevenson catheter for acute retention.
-will continue to monitor closely
-Echo in am
-Vito Arias for HTN. Avoid BB for transient LBBB post TAVR
[2025-08-09] MEDS: ROXICODONE 5 MG PO (02:03)
--- NOTE | 2025-08-09 02:14 | PTCARENOTE ---
Pt tachypneic, c/o chest pressure and concerned about his BP 147/58. Pt also unable to empty his bladder. Bladder scan for 754ml. Straight cath for 1000ml clear yellow urine. EKG stat and SL nitro x 1 given. Pt stated that his chest pressure
improved and now only left side with mild discomfort. Pt still appears tachypneic and has fine crackles at the base of b/l lungs. Given 40 mg IV Lasix and Stevenson 14 fr placed.
[2025-08-09 05:16] LABS: Hematocrit 32.5 % (39.0-52.0); Hemoglobin 10.8 g/dL (13.0-18.0); Mean Corp Hgb Conc. 33.2 g/dL (33.0-37.0); Mean Corpuscular Volume 79.5 fL (80.0-94.0); Platelet Count 308 10^3/uL (130-400); Red Cell Dist. Width 17.3 % (11.5-14.5)
[2025-08-09 05:36] LABS: Blood Urea Nitrogen 10 mg/dl (9-20); Calcium 8.6 mg/dl (8.4-10.2); Carbon Dioxide 22 mmol/L (22-30); Chloride 106 mmol/L (98-107); Estimated Creatinine Clearance 65 ml/min; Glucose 97 mg/dl (70-99); Potassium 4.3 mmol/L (3.5-5.1); Sodium 137 mmol/L (135-145); eGFR > 60.00
--- NOTE | 2025-08-09 05:39 | W.PN.CT ---
Today's Communication / Plan
-
-pod #1
-CP with SOB and HTN overnight - ECG without acute change, felt better after 1 sl Nitro. Appeared volume-overloaded (LVED was 24)- gave 40 iv Lasix - UO 2400+ (overall UO 3700+)
-new transient LBBB post TAVR. No twila or pauses overnight
-urinary retention, required straight cath x2. Stevenson placed
-Echo today
-current meds (ASA, Brilinta, Crestor, Diovan)
-will need outpatient monitor
Assessment / Plan
-
- Severe symptomatic aortic valve stenosis- s/p Right trans femoral TAVR with a 23+1 cc Mckinley TAVR valve on 08/08/25, pod #1
- Acute on chronic diastolic CHF, LVEDP 24
- Intraop TTE: LVEF was 55% pre and postop without inotropic support, no wma. he aortic valve was well seated without detectable PVL and mean gradient across the new valve was 4mmHg
- Severe interstitial pulmonary fibrosis
- Coronary disease- s/p stents 09/2024- on ASA and Brilinta at home
- Hypertension
- Hyperlipidemia
- Type 2 diabetes
- GERD
- Ambulatory dysfunction
- Acute postop urinary retention- s/p straight cathx2. Stevenson placed
- Acute postop transient LBBB - resolved
Discussed patient care with: Nursing and Care Team
Subjective
-
Date of Service: August 09, 2025
Objective Data
-
Lab Results
08/09/25 04:33
08/09/25 04:33
PT 12.7 Sec (11.4-14.6) 07/31/25 09:08
INR 0.91 07/31/25 09:08
Vital Signs
Vital Signs
Temp Pulse Resp BP Pulse Ox
98.8 F 77 19 128/46 96
08/09/25 04:28 08/09/25 04:00 08/09/25 04:28 08/09/25 04:00 08/09/25 04:28
CT Intake/Output/Weight
08/08/25 08/08/25 08/09/25
06:59 18:59 06:59
Intake Total 1500 / 1900 400 / 1900
Output Total 325 / 3725 3400 / 3725
Balance 1175 / -1825 -3000 / -1825
SaO2: 96
Physical Exam
-
General: Awake and AOx3
Cardiovascular: Regular rate & rhythm (+ JVD), No Murmurs and No Rub
Respiratory: Rales (at bases and mid lungs b/l. No wheeze)
Incision: Clean (groins are cdi, soft, nontender, no hematoma b/l)
Extremities: No Edema (2+ DPs b/l)
Abdomen: soft, rotund, ? distended, nontender
Data Reviewed
-
Lab Results: Results Reviewed
Medications: Active Meds Reviewed
Chest X-Ray: Report Reviewed and Image Reviewed
ECG: Report Reviewed and Image Reviewed
[2025-08-09] MEDS: SYMBICORT 80/4.5 MCG INHALER 2 PUFF INH ×2 (07:26→19:30)
[2025-08-09] MEDS: SPIRIVA RESPIMAT 2.5 MCG 2 PUFF INH (07:26)
--- NOTE | 2025-08-09 08:58 | CONS.URO ---
Consultation
-
Date/Time Consultation Performed: 08/09 830
Performing Provider: Peffer
Reason for Consultation: Retention
Medical History
History of Present Illness
75M post TAVR with urinary retention of approx 1000cc requring straight cath/pineda
Significant weak stream at baseline not treated
Past Medical History
Past Medical History: Valvular Disease
Past Surgical History: Cardiac
Family History
Family History: Reviewed & Not Pertinent
Allergies/Home Medications
Allergies
Allergy/AdvReac Type Severity Reaction Status Date / Time
No Known Allergies Allergy Verified 08/08/25 09:59
Home Medications
�Medication �Instructions �Recorded �Confirmed �Type
amlodipine 5 mg tablet 10 mg PO DAILY Blood Pressure 01/31/24 08/08/25 History
cholecalciferol (vitamin D3) 25 25 mcg PO DAILY Supplement 01/31/24 08/08/25 History
mcg (1,000 unit) tablet (Vitamin
D3)
fluticasone fur. 100 mcg-umeclid 1 inh inhalation R DAILY 01/31/24 08/08/25 History
62.5 mcg-vilant 25 mcg Lung/Breathing Issues
inhalat.powder (Trelegy Ellipta)
omeprazole 40 mg capsule,delayed 40 mg PO DAILY Gastrointestinal 01/31/24 08/08/25 History
release Issue
rosuvastatin 40 mg tablet 40 mg PO HS High Cholesterol 01/31/24 08/08/25 History
sitagliptin phosphate 50 1 tab PO BID@0800,1700 Diabetes 01/31/24 08/08/25 History
mg-metformin 1,000 mg tablet
(Janumet)
ticagrelor 90 mg tablet (Brilinta) 90 mg PO BID #60 tabs 02/01/24 08/08/25 Rx
albuterol sulfate 90 mcg/actuation 2 puff inhalation R Q6HPRN PRN sob 09/21/24 08/08/25 History
aerosol inhaler
ferrous sulfate 325 mg (65 mg 325 mg PO DAILY Supplement 09/21/24 08/08/25 History
iron) tablet
insulin detemir U-100 100 unit/mL 40 unit SC HS Diabetes 09/21/24 08/08/25 History
(3 mL) subcutaneous pen (Levemir
FlexTouch U-100 Insulin)
nintedanib 150 mg capsule (Ofev) 150 mg PO Q12H Lung/Breathing 09/21/24 08/08/25 History
Issues
aspirin 81 mg chewable tablet 81 mg PO DAILY Antiplatelet 09/25/24 08/08/25 Rx
therapy 90 days #90 tabs
hydrocortisone 0.5 % topical cream 1 applic topical BID PRN facial 05/27/25 08/08/25 History
rash
dapagliflozin propanediol 10 mg 10 mg PO DAILY 06/03/25 08/08/25 History
tablet (Farxiga)
insulin aspar prot-insulin aspart 22 unit SC ACHS 06/03/25 08/08/25 History
100 unit/mL (70-30) subcutaneous
pen
ketoconazole 2 % topical cream 1 applic topical BID 06/03/25 08/08/25 History
polyethylene glycol 3350 17 gram 17 g PO DAILY 06/03/25 08/08/25 History
oral powder packet (Miralax)
prednisone 5 mg tablet 5 mg PO DAILY PRN rheum 06/03/25 08/08/25 History
amoxicillin 500 mg tablet 500 mg PO Q12H 07/26/25 08/08/25 History
valsartan 80 mg tablet 80 mg PO DAILY 07/26/25 08/08/25 History
Physical Exam
Vital Signs
Vital Signs
Temp Pulse Resp BP Pulse Ox
98.9 F 80 18 102/43 93
08/09/25 07:59 08/09/25 08:02 08/09/25 07:59 08/09/25 08:02 08/09/25 07:59
Lab / Testing Results
Laboratory Results
08/09/25 04:33
08/09/25 04:33
Physical Exam
General: Well Developed, Well Nourished and No Apparent Distress
Respiratory: Non Labored Respirations
Genito-urinary: Clear Urine and Pineda Catheter
Neuro: AO x 3
Psych: Calm and Intact Judgement
Assessment / Plan
-
Start tamsulosin
Repeat trial of void today with post void bladder scan
If unable to void or high volume post void residual, replace pineda
Outpatient follow up
[2025-08-09] MEDS: FLOMAX 0.4 MG PO (09:14)
[2025-08-09] MEDS: BRILINTA 90 MG PO (09:14)
[2025-08-09] MEDS: LOW STRENGTH ASPIRIN 81 MG PO (09:15)
[2025-08-09] MEDS: PROTONIX 40 MG PO (09:15)
[2025-08-09] MEDS: VITAMIN D3 (cholecalciferol) 25 MCG PO (09:16)
[2025-08-09] MEDS: FLUSH (NSS) 2 FLUSH IV (09:19)
[2025-08-09] MEDS: DIOVAN 80 MG PO (09:20)
[2025-08-09 09:21] LABS: Hepatitis C Antibody Negative (Negative)
[2025-08-09 09:52] LABS: Glucose - Point of Care 131 mg/dl (70-99)
[2025-08-09] MEDS: NOVOLOG MIX 70/30 FLEXPEN 22 UNITS SC ×2 (09:52→14:10)
--- NOTE | 2025-08-09 10:12 | PTCARENOTE ---
Received patient this morning resting in bed, his daughter at the bedside to translate. Patient continues to have dull pain left chest which he says is constant but better than it has been. Also having discomfort from his recent teeth extraction,
rates both as 2/10. Given tylenol for discomfort. Patient seen by urology, given flomax as ordered and pineda removed. Bilateral groin dressings are dry and intact, neuro status within normal limits. Fines crackles auscultated at the bases, daughter
is concerned that she would liked this addressed before bringing him home. Inquired what his baseline lung sounds are with his history of pulmonary fibrosis but the daughter was unsure. Dr. Grant in to see the patient and is aware of chest
discomfort and lung sounds. Await results of echo which was completed.
--- NOTE | 2025-08-09 11:43 | CM ---
Chart reviewed. Patient is Ukrainian speaking, daughter and RUSS at bedside. Patient is independent of ADLS, lives with his daughter in a 2 STH, 1st floor set up, has a SPC, RW, and wheelchair. Plan is for the patient to return home with CT
Transitional RN. CM to follow
--- NOTE | 2025-08-09 12:01 | PTCARENOTE ---
Patient's daughter states he is unable to use IS due to recent teeth extraction, encouraged to cough and deep breathe Q1H.
[2025-08-09 12:45] LABS: Glucose - Point of Care 289 mg/dl (70-99)
--- NOTE | 2025-08-09 14:00 | PTCARENOTE ---
Patient voided in the bathroom according to his daughter but did not use urinal, he feels like he still needs to urinate. Bladder scanned for 3ml, reinforced for him to use the urinal so that we can measure.
--- NOTE | 2025-08-09 14:30 | W.PN.ANS.POP ---
Anesthesia Post Operative
- Anesthesia Post Op Note
Vital Signs Stable-See Nursing Note: Yes
Airway Patent: Yes
Adequate Pain Control: Yes
Change in Mental Status: No
Current Postoperative Nausea & Vomiting: No
Anesthesia Complications: No
General Anesthetic Recall: No
Unplanned Admission: No
Post Op Hydration Adequate: Yes
- -
Pt awake and alert, resting comfortably with no anesthesia related c/o at time of post op visit.
--- NOTE | 2025-08-09 15:28 | W.PN.CD ---
Addendum entered and electronically signed by Dylan Grant MD 08/09/25 15:45:
CAD
- cont. asa, stop ticag (nearly 1 year post stent, high bleeding risk)
Original Note:
Today's Communication / Plan
-
urology consult
ambulate
dischage pending above
Impression / Plan
-
75M with ILD, LFLG severe s/p TF TAVR 08/08/2025 (S23+1cc, Ivonne/Juanita).
Overnight had some substernal chest pain that has been stable and constant.
Ongoing urinary retention, straight cath x2, pineda placed, urology consulted
VSS
Given 40 IV lasix with excellent UOP
Tele without AV block, intermittent LBBB
EKG non-ischemic
Echo with normal appearing valve, mG 9, no effusion-pod #1
Assessment/Plan:
s/p TAVR
- going well
- valve function normal on TTE
- 1 month follow up echo
- 40 IV lasix with excellent UOP, will not start standing diuretic
Chest pain
- likely non cardiac
- echo and ecg reassuring (no ischemic changes, no effusion)
HTN
- cont. current meds
Urinary retention
- urology consulted
Physical Exam
Vital Signs/Labs
Vital Signs
Temp Pulse Resp BP Pulse Ox
36.9 C 82 15 129/40 97
08/09/25 15:06 08/09/25 15:06 08/09/25 15:06 08/09/25 10:34 08/09/25 15:06
08/08/25 08/09/25 08/10/25
06:59 06:59 06:59
Actual Weight 70.3 kg
08/09/25 04:33
08/09/25 04:33
PT 12.7 Sec (11.4-14.6) 07/31/25 09:08
INR 0.91 07/31/25 09:08
07/31/25
09:08
Waz-T-Qdhfblzmumv Pept 37.6
Physical Exam
Constitutional: Comfortable
Cardiovascular: Rhythm & rate is regular
Respiratory: Respiratory effort normal
Neuro/Psych: AO x 3
Data Reviewed
-
Date of Service: August 09, 2025
Medical Decision Making: Reviewed Test Results
EKG: Tracing Personally Visualized and interpreted
Echo: Tracing Personally Visualized and interpreted
X-Ray/CT/US/MRI/NUC/PET: Image Personally Visualized and interpreted
Labs: Labs Reviewed by me
--- NOTE | 2025-08-09 16:39 | PTCARENOTE ---
Patient is voiding, up to 200ml but with a PVR of 169, states he is having burning and does not feel he is emptying. TT to CT surgery and urology, patient's daughter spoken to by CT surgery and plan is to stay overnight and monitor output/residuals
and send home with pineda tomorrow if indicated.
[2025-08-09 18:03] LABS: Glucose - Point of Care 89 mg/dl (70-99)
[2025-08-09] MEDS: NOVOLOG MIX 70/30 FLEXPEN SC ×2 (18:35→23:06)
--- NOTE | 2025-08-09 18:36 | PTCARENOTE ---
Patient grossly incontinent of a large amount of urine, bladder scanned for PVR of 62ml.
[2025-08-09 22:00] LABS: Glucose - Point of Care 203 mg/dl (70-99)
[2025-08-09] MEDS: CRESTOR 40 MG PO (22:39)
[2025-08-09] MEDS: LANTUS 0.4 UNITS SC (22:39)
[2025-08-10 01:50] VITALS: BP 120/50
[2025-08-10 01:51] LABS: Glucose - Point of Care 103 mg/dl (70-99)
[2025-08-10] MEDS: TYLENOL 650 MG PO ×2 (01:54→10:25)
[2025-08-10 04:27] VITALS: BP 102/28
--- NOTE | 2025-08-10 05:47 | PTCARENOTE ---
Pt NSR, VSS. B/l groin dsg CDI. Pt denies chest pain. Temp 100.4 Tylenol PRN given. Bladder scan show less than 80 ml post residual. Pt stated he has very mild abdominal discomfort. UA ordered and pending
[2025-08-10 06:00] VITALS: BMI 25.9
[2025-08-10] MEDS: SYMBICORT 80/4.5 MCG INHALER 2 PUFF INH (07:21)
[2025-08-10] MEDS: SPIRIVA RESPIMAT 2.5 MCG 2 PUFF INH (07:21)
[2025-08-10 08:09] LABS: ALT (SGPT) 18 U/L (0-50); AST (SGOT) 33 U/L (17-59); Albumin 3.2 g/dl (3.5-5.0); Alkaline Phosphatase 64 U/L (38-126); Blood Urea Nitrogen 11 mg/dl (9-20); Calcium 8.5 mg/dl (8.4-10.2); Carbon Dioxide 22 mmol/L (22-30); Chloride 108 mmol/L (98-107); Estimated Creatinine Clearance 58 ml/min; Glucose 102 mg/dl (70-99); Potassium 3.8 mmol/L (3.5-5.1); Sodium 137 mmol/L (135-145); Total Protein 6.9 g/dl (6.3-8.2); eGFR > 60.00
[2025-08-10 09:02] LABS: Glucose - Point of Care 90 mg/dl (70-99)
[2025-08-10 09:05] VITALS: BP 112/59
[2025-08-10] MEDS: NOVOLOG MIX 70/30 FLEXPEN 22 UNITS SC (09:05)
[2025-08-10] MEDS: PROTONIX 40 MG PO (09:06)
[2025-08-10] MEDS: FLOMAX 0.4 MG PO (09:06)
[2025-08-10] MEDS: VITAMIN D3 (cholecalciferol) 25 MCG PO (09:06)
[2025-08-10] MEDS: LOW STRENGTH ASPIRIN 81 MG PO (09:06)
--- NOTE | 2025-08-10 09:12 | W.PN.CT ---
Today's Communication / Plan
-
-pod #2
-pt is A&O x4, no confusion. Had some urinary incontinence overnight. No further CP
-Tm 100 overnight. Pt c/o urinary burning on pod#0 (prior to Stevenson placement), which has since resolved. Will check UA
-labs pending
-suspect possible constipation - pt had 3 BMs on 08/09. Abdomen is less distended, soft, no pain
-started on Flomax for acute urinary retention. Bladder scan @ approx 2 am was only 85cc
-new LBBB post TAVR (in and out). No twila or pauses overnight
-diuresed over 3L on pod #0 with iv Lasix
-will dc with cardiac nurse practitioner
Assessment / Plan
-
- Severe symptomatic aortic valve stenosis- s/p Right trans femoral TAVR with a 23+1 cc Mckinley TAVR valve on 08/08/25, pod #2
- Acute on chronic diastolic CHF, LVEDP 24
- Intraop TTE: LVEF was 55% pre and postop without inotropic support, no wma. he aortic valve was well seated without detectable PVL and mean gradient across the new valve was 4mmHg
- Severe interstitial pulmonary fibrosis
- Coronary disease- s/p stents 09/2024- on ASA and Brilinta at home
- Hypertension
- Hyperlipidemia
- Type 2 diabetes
- GERD
- Ambulatory dysfunction
- Acute postop urinary retention- s/p straight cathx2. Stevenson placed 08/08 and dcd 08/09
- Acute postop LBBB - in and out of
Discussed patient care with: Nursing and Care Team
Subjective
-
Date of Service: August 10, 2025
Objective Data
-
Lab Results
08/10/25 07:31
PT 12.7 Sec (11.4-14.6) 07/31/25 09:08
INR 0.91 07/31/25 09:08
Vital Signs
Vital Signs
Temp Pulse Resp BP Pulse Ox
97.5 F 75 18 102/28 91
08/10/25 07:00 08/10/25 07:23 08/10/25 07:23 08/10/25 04:27 08/10/25 07:23
CT Intake/Output/Weight
08/09/25 08/10/25 08/10/25
18:59 06:59 18:59
Intake Total 480 / 630 150 / 630
Output Total 525 / 525
Balance -45 / 105 150 / 105
SaO2: 91
Physical Exam
-
General: Awake and AOx3
Cardiovascular: Regular rate & rhythm, No Murmurs and No Rub
Respiratory: Rales (at bases b/l. No wheeze)
Incision: Clean (groins are cdi, soft, nontender, no hematoma b/l)
Extremities: No Edema
Data Reviewed
-
Lab Results: Results Reviewed
Medications: Active Meds Reviewed
Chest X-Ray: Report Reviewed and Image Reviewed
ECG: Report Reviewed and Image Reviewed
[2025-08-10] MEDS: DIOVAN 80 MG PO (09:14)
[2025-08-10 09:36] LABS: Urine Character Clear (Clear)
[2025-08-10 09:46] LABS: Urine Red Blood Cell 0-2 /HPF (0-2); Urine White Cell 0-2 /HPF (0-5)
[2025-08-10 09:54] LABS: Hematocrit 30.3 % (39.0-52.0); Hemoglobin 10.1 g/dL (13.0-18.0); Mean Corp Hgb Conc. 33.3 g/dL (33.0-37.0); Mean Corpuscular Volume 79.7 fL (80.0-94.0); Nucleated Red Blood Cells % 0.1 % (-); Platelet Count 235 10^3/uL (130-400); Red Cell Dist. Width 17.3 % (11.5-14.5)
[2025-08-10 10:03] VITALS: BP 108/50; BP 110/36; PULSE 80; O2SAT 95
--- NOTE | 2025-08-10 10:44 | W.DCSUMMARY ---
Discharge Summary
Discharge Data
Date of Admission: 08/08/25
Date of Discharge: 08/11/25
-
Pending Results: No
Hospital Course
Primary care physician:
Leon George
Outpatient bicycle courier:
Francisco Covarrubias
Inpatient consultants:
Procedures:
1. Right trans femoral TAVR with a 23+1 cc Mckinley TAVR valve on 08/08/25
Admission Diagnosis:
- Severe symptomatic aortic valve stenosis
- Acute on chronic diastolic CHF, LVEDP 24
- Severe interstitial pulmonary fibrosis
- Coronary disease- s/p stents 09/2024- on ASA and Brilinta at home
- Hypertension
- Hyperlipidemia
- Type 2 diabetes
- GERD
- Ambulatory dysfunction
Discharge Diagnoses:
- Severe symptomatic aortic valve stenosis
- s/p TAVR
- Acute on chronic diastolic CHF, LVEDP 24
- Severe interstitial pulmonary fibrosis
- Coronary disease- s/p stents 09/2024- on ASA and Brilinta at home
- Hypertension
- Hyperlipidemia
- Type 2 diabetes
- GERD
- Ambulatory dysfunction
- Acute postop urinary retention
- Acute postop transient LBBB - resolved
HPI: Patient is a 75-year-old male with known progressive aortic stenosis. His most recent echocardiogram demonstrated peak/mean gradient of 53/26 mmHg, respectively. Aortic valve area was calculated to be 0.9 and peak velocity was 3.65 m/s.
Left heart catheterization revealed no significant obstructive coronary disease. Mean gradient on cath was 28.4 with an estimated valve area of 0.79. Stroke-volume index was 34 on the most recent echocardiogram with a dimensionless index of 0.2.
This would classify his aortic valve disease as low-flow low gradient severe aortic valve stenosis. From a symptomatology standpoint, he describes severe shortness of breath even with walking a few steps and at rest. In comparison to 1 year ago
they feel worse. Functionally, he is frail in appearance and his daughter helps him with activities of daily living. I believe he meets the criteria for severe aortic valve stenosis and satisfies stage D symptomatology and therefore considered
them a class I indication for intervention. Given his age and risk factors I would recommend a Coronado catheter approach provided there imaging studies reveal safe and amenable anatomy. Reconstructed images of the CT scan were performed with
appropriate measurements for transcatheter aortic valve replacement. He was scheduled and consented for such.
Hospital course: He was admitted for same-day admissions on 08/08/2025 taken to the [facility] and underwent right transfemoral TAVR with a 23 mm +1 Mckinley CLARE valve. He tolerated the procedure well and was transferred to the ICU in stable
condition. He was on some Levophed for blood pressure support. He was found to have a new left bundle branch block with intermittent junctional rhythm in the 50s. He was ably quickly weaned from the Levophed. He spontaneously voided following
TAVR surgery however needed to be straight cath and eventually needing a Stevenson placed later that evening. Flomax restarted on postop day 1 urology saw the patient and the Stevenson was discontinued. The patient was able to spontaneously void
thereafter. His left bundle branch block resolved and cardiology recommended that he go home with a monitor. The patient was able to be safely discharged to home on postop day 2. He was given explicit instructions on wound care physical activity.
He will follow-up in the office as scheduled.
Home medication changes:
Continue:
amlodipine 5 mg tablet 10 mg PO DAILY
cholecalciferol (vitamin D3) 25 mcg (1,000 unit) tablet (Vitamin D3) 25 mcg PO DAILY
fluticasone fur. 100 mcg-umeclid 62.5 mcg-vilant 25 mcg inhalat.powder (Trelegy Ellipta) 1 inh inhalation DAILY
omeprazole 40 mg capsule,delayed release 40 mg PO DAILY
rosuvastatin 40 mg tablet 40 mg PO HS
sitagliptin phosphate 50 mg-metformin 1,000 mg tablet (Janumet) 1 tab PO BID Instructions: Resume on 08/11/25.
albuterol sulfate 90 mcg/actuation aerosol inhaler 2 puff inhalation Q6HPRN
ferrous sulfate 325 mg (65 mg iron) tablet 325 mg PO DAILY
insulin detemir U-100 100 unit/mL (3 mL) subcutaneous pen (Levemir FlexTouch U-100 Insulin) 40 unit SC HS
nintedanib 150 mg capsule (Ofev) 150 mg PO Q12H
aspirin 81 mg chewable tablet 81 mg PO DAILY
hydrocortisone 0.5 % topical cream 1 applic topical BID PRN facial rash
dapagliflozin propanediol 10 mg tablet (Farxiga) 10 mg PO DAILY
insulin aspar prot-insulin aspart 100 unit/mL (70-30) subcutaneous pen 22 unit SC ACHS
polyethylene glycol 3350 17 gram oral powder packet (Miralax) 17 g PO DAILY
prednisone 5 mg tablet 5 mg PO DAILY PRN
ketoconazole 2 % topical cream 1 applic topical BID facial rash
valsartan 80 mg tablet 80 mg PO DAILY
Start:
furosemide 20 mg tablet (Lasix) 20 mg PO DAILY for 5 days
tamsulosin 0.4 mg capsule 0.4 mg PO DAILY
Stop:
Amoxicillin
ticagrelor (Brilinta)
Discharge Plan
-
Patient Disposition: Home (Routine Discharge)
Discharge Diagnosis/Procedures: TF-TAVR
Condition: Fair
Diet: Low Cholesterol, 2 Gram Sodium and Diabetic, Carb Controlled
Activity: As tolerated
Driving Restrictions: No driving for 1 week
Bathing Restrictions: OK to Shower
Others Tests: 30 Day Follow Up Echocardiogram: 09/09/2025 at 2:00pm at [facility]
Other Services: Cardiac Rehab
Wound Care: Please do not apply lotions, creams or powders to groin areas. Please monitor for increased pain, swelling, drainage or redness. Notify your doctor if any occur.
Specialty Instructions: Weigh Daily- Call MD for wt gain/loss 3 lbs overnight/5 lbs in 1 week
Activity Restrictions/Additional Instructions:
Phase II Cardiac Rehab (as able/IF covered- [facility])
If not try Phase III Cardiac Rehab (currently offered at [facility] or [facility].)
OR [facility] Phase IV Cardiac Rehab (if unable to do Phase II/III, would need to be independent)
[facility] in [place]/[facility]
Stand Alone Forms: DC Inst - TransFemoral (TAVR)
Referrals:
CT Transitional Care Nurse [Outside] - in one to two days
Referral Note:
The Cardiothoracic Transitional Care Nurse will call you to set up a visit in 1-2 days.
Susy Key CRNP [Specified Professional Personl, Cardiology] - 09/11/25 9:20 am
Additional Discharge Medication Instructions: Flomax for urinary retention
Prescriptions:
New
tamsulosin 0.4 mg Capsule
0.4 mg PO DAILY Qty: 30 2RF
furosemide [Lasix] 20 mg tablet
20 mg PO DAILY Qty: 5 0RF
Continued
amlodipine 5 mg tablet
10 mg PO DAILY
omeprazole 40 mg capsule,delayed release(DR/EC)
40 mg PO DAILY
rosuvastatin 40 mg tablet
40 mg PO HS
Trelegy Ellipta 100-62.5-25 mcg blister with device
1 inh INHALATION R DAILY
cholecalciferol (vitamin D3) [Vitamin D3] 25 mcg (1,000 unit) Tablet
25 mcg PO DAILY
ferrous sulfate 325 mg (65 mg iron) Tablet
325 mg PO DAILY
albuterol sulfate 90 mcg/actuation Hfa Aerosol Inhaler
2 puff INHALATION R Q6HPRN PRN (Reason: sob)
Levemir FlexTouch U100 Insulin 100 unit/mL (3 mL) Insulin Pen
40 unit SC HS
Ofev 150 mg Capsule
150 mg PO Q12H
aspirin 81 mg Tablet,Chewable
81 mg PO DAILY 90 Days Qty: 90 3RF
hydrocortisone 0.5 % Cream
1 applic TOPICAL BID PRN (Reason: facial rash )
polyethylene glycol 3350 [Miralax] 17 gram Powder In Packet
17 g PO DAILY
prednisone 5 mg Tablet
5 mg PO DAILY PRN (Reason: rheum)
dapagliflozin propanediol [Farxiga] 10 mg Tablet
10 mg PO DAILY
insulin asp prt-insulin aspart 100 unit/mL (70-30) Insulin Pen
22 unit SC ACHS
valsartan 80 mg Tablet
80 mg PO DAILY Qty: 0 0RF
ketoconazole 2 % Cream
1 applic TOPICAL BID Qty: 0 0RF
Held
Janumet 50-1,000 mg tablet
1 tab PO BID@0800,1700
Hold Instructions: Resume on 08/11/25.
Discontinued
ticagrelor [Brilinta] 90 mg Tablet
90 mg PO BID Qty: 60 0RF
amoxicillin 500 mg Tablet
500 mg PO Q12H
Discharge Orders:
Discharge Patient (As Directed); Ordered 08/10/25
Ordered By: Camilo Ruby
Care Plan Goals
Care Plan Goals:
Problem: Readiness for enhanced knowledge related to diagnosis and treatment plan
Goal: Understand your diagnosis and treatment plan needs, including medications if applicable.
Instructions: Know your diagnosis, underlying causes and treatment plan options, including medications if applicable. Consult with your health care team to learn about your diagnosis and treatment plan, including medications if applicable.
Discharge Date and Time
Discharge Date/Time: 08/10/25 12:58
Print Language: SLOVAK
[2025-08-10 12:10] VITALS: BP 101/34
--- NOTE | 2025-08-10 12:47 | PTCARENOTE ---
Star monitor applied to patient prior to discharge, family member understands use and care of monitor, all questions addressed.
== END 2025-08-10 12:58 | disposition home or self-care (01) | DRG 266 ==
LOC: IVU 08:57
PROVIDERS: Nurse Practitioner; Physician Assistant Medical; ADMITTING PHYSICIAN Thoracic Surgery (Cardiothoracic Vascular Surgery); CONSULT PHYSICIAN Urology; FAMILY PHYSICIAN Nurse Practitioner; OTHER PHYSICIAN Student in an Organized Health Care Education/Training Program
PROC: 02RF38Z Replacement of Aortic Valve with Zooplastic Tissue, Percutaneous Approach (ICD-10-PCS; 2025-08-08)
PROC: 30233N1 Transfusion of Nonautologous Red Blood Cells into Peripheral Vein, Percutaneous Approach (ICD-10-PCS; 2025-08-08)
DX: I35.0 Nonrheumatic aortic (valve) stenosis (principal); Z00.6 Encounter for examination for normal comparison and control in clinical research program; I50.33 Acute on chronic diastolic (congestive) heart failure; J84.10 Pulmonary fibrosis, unspecified; I25.10 Atherosclerotic heart disease of native coronary artery without angina pectoris; I11.0 Hypertensive heart disease with heart failure; E11.9 Type 2 diabetes mellitus without complications; K21.9 Gastro-esophageal reflux disease without esophagitis; I44.7 Left bundle-branch block, unspecified; R33.8 Other retention of urine; R07.89 Other chest pain; J44.9 Chronic obstructive pulmonary disease, unspecified; E78.00 Pure hypercholesterolemia, unspecified; D50.9 Iron deficiency anemia, unspecified; R39.12 Poor urinary stream; Z99.81 Dependence on supplemental oxygen; Z87.891 Personal history of nicotine dependence; Z95.5 Presence of coronary angioplasty implant and graft; Z79.82 Long term (current) use of aspirin; Z79.4 Long term (current) use of insulin; Z79.52 Long term (current) use of systemic steroids
CPT/HCPCS: 33361; 36415; 71045; 71046; 80048; 80053; 81003; 81015; 82248; 82962; 83036; 83880; 85025; 85027; 85347; 85610; 86803; 86850; 86900; 86901; 86920; 87070; 93005; 93308; 93321; 93325; 94640; C1760; C1769; C1894; P9016; Q9967

== ENCOUNTER → 2025-09-09 14:10 | Outpatient (REF) | payer OTHER, SELFPAY | LOC: RCS 14:10 | PROVIDERS: ATTENDING PHYSICIAN Internal Medicine; FAMILY PHYSICIAN Nurse Practitioner | DX: I35.0 Nonrheumatic aortic (valve) stenosis (principal) | CPT/HCPCS: 93306 ==